=== PATIENT | male | born 1990 | race Caucasian/White ===

== ENCOUNTER 2020-05-15 07:26 | Emergency (ER) | payer MEDICAID, SELFPAY ==
[2020-05-15 07:27] VITALS: BP 163/97; PULSE 91; RESP 16; TEMP 36.3; O2SAT 98; BMI 45.8
--- NOTE | 2020-05-15 07:49 | ED.VIS.GEN ---
History of Present Illness Chief Complaint: Anxiety Informant: Patient Onset: Weeks - 1 Context: Gradual Onset Timing: Intermittent Quality: fearfulness that leads to panic, anxiety Current Severity: Mild Maximum Severity: Severe Worsened by: nighttime before bed Relieved by: nothing Associated Symptoms: after panicky, feels heart racing and shaky all over; no prodromal sx. Narrative: Patient states in the goal of better health and eating less and trying to lose weight, he stopped smoking marijuana about 1 month ago. He does no other drugs and takes no prescriptions. He has not been feeling depressed or suicidal. He has no hallucinations, but for reasons that he is unaware, although he has had issues with depression and anxiety in the past, he gets very anxious and at times panicky at night recently over the past week, with fear of dying, although he is not having suicidal thoughts or wanting to . He has an appointment at [facility] for a mental health evaluation in 5 days, but is concerned about his symptoms because it is causing him to be unable to sleep well, and then having more of the anxiety the following day now. No recent illnesses, patient presents during the national coronavirus emergency declaration/pandemic. He denies any known contact with anyone infected with COVID-19. He denies traveling out of the immediate area recently. - Past Medical History (1) Anxiety Status: Chronic Past Medical History - Allergies and Home Meds Allergies/Adverse Reactions: Allergies peanut Allergy (Verified 05/15/20 07:27) Anaphylaxis egg Adverse Reaction (Verified 05/15/20 07:27) Nausea/Vom/Diarrhea Primary Care Physician: Bossman Stein MD [Primary Care Provider] - Lives: With Family Smoking Status: Never smoker Alcohol: None Drugs: Marijuana Review of Systems General: Reports: Weight loss - 14 pounds, intentional. Denies: Chills, Fever, Sweats Eyes: Denies: Visual changes - bilaterally, Diplopia ENT: Denies: Rhinorrhea, Sore throat Cardiovascular: Denies: Chest pain, Palpitations Respiratory: Denies: Dyspnea, Cough, Dyspnea on exertion Gastrointestinal: Denies: Abdominal pain, Nausea, Vomiting, Diarrhea, Melena, Hematochezia Genitourinary: Denies: Dysuria, Hematuria, Frequency Musculoskeletal: Denies: Back pain, Extremity Pain Skin: Denies: Rash, Wounds Neurological: Denies: Headache, Weakness, Parasthesia, Numbness Psych: Reports: Anxiety. Denies: Depression, Suicidal thoughts, Suicidal ideations Endocrine: Denies: Polyuria, Polydipsia, Heat intolerance, Cold intolerance Allergy: Denies: Swelling of the mouth, Swelling of the tongue Physical Exam Vital Signs/Narrative: Vital Signs Temp Pulse Resp BP Pulse Ox 05/15/20 07:27 97.4 F L 91 16 163/97 H 98 Inital Vital Signs reviewed: Yes General: Well nourished, Well developed, Obese, No Acute Distress Head: Normocephalic, Atraumatic Eyes: Perrl, EOMI ENT: Moist mucous membranes, No rhinorrhea Neck: Supple, Nontender, No lymphadenopathy, - - No thyromegaly Cardiovascular: Regular rate, Regular rhythm, No murmurs Respiratory: No distress, CTA bilaterally, Chest nontender Abdomen: Soft, Nontender, Nondistended, Normal bowel sounds Back: Nontender, Normal Inspection. Negative for: CVA tenderness Extremities: Nontender, No edema. Negative for: Calf Tenderness Skin: Normal color, No rash, No Trauma Neurological: Alert, Oriented x3, Cranial nerves II-XII grossly intact, Normal Strength, Normal Sensation, Normal Gait Psychological: Normal affect, Normal Mood Diagnostic/Tx/Re-eval - Medical Decision Making Patient's medical screening exam is benign. I think it would be reasonable to write him a prescription for some Ambien to try, as trying to start him on an SSRI may result in it being changed in 5 days and relatively wasteful when he sees mental health. I discussed this with him and he is amenable to trying that. ED Disposition - Plan for ED Patient: Disposition: Home or Assisted Living Diagnosis: Anxiety, Insomnia Instructions: ED Panic Attack, ED Insomnia Prescriptions: Zolpidem Tartrate [Ambien] 5 mg PO QHS PRN #6 tab PRN Reason: Insomnia Prescription Printed Referrals: Bossman Stein MD [Primary Care Provider] - [facility] [STAFF PHYSICIAN] - Keep Natalie appointment
== END 2020-05-15 08:13 | disposition home or self-care (01) ==
LOC: ED 08:04
PROVIDERS: Emergency Provider Emergency Medicine
DX: G47.00 Insomnia, unspecified (principal); F41.9 Anxiety disorder, unspecified; E66.9 Obesity, unspecified
CPT/HCPCS: 99282

== ENCOUNTER → 2020-05-22 | Outpatient (CLI) | payer MEDICAID, SELFPAY ==
[2020-05-15 07:27] VITALS: BMI 45.8
[2020-05-22 10:53] LABS: Absolute Lymphocyte Count 2.72 X10^3/uL (0.83-4.51); Absolute Neutrophil Count 4.5 X10^3/uL (2.0-7.7); Basophil# 0.07 X10^3/uL; Basophil% 0.8 % (0-1); Hematocrit 44.7 % (40-54); Hemoglobin 15.2 g/dL (13.0-16.5); Lymphocyte # 2.72 X10^3/ul (4.0); Lymphocyte % 32.7 % (19-41); Mean Corpuscular Hgb 29.7 pg (27.0-32.0); Mean Corpuscular Volume 87.3 fL (80-94); Monocyte# 0.51 X10^3/uL; Monocyte% 6.1 % (0-10); NRBC Flagged by Analyzer 0 % (0-5); Neutrophil # 4.49 X10^3/uL (2.7-7.7); Platelet Count 305 K/mm3 (150-450); RBC Distribution Width CV 13.1 % (11.6-14.6); RBC Distribution Width SD 40.6 fl (35.1-43.9); Red Blood Count 5.12 M/mm3 (4.6-6.2); White Blood Count 8.3 K/mm3 (4.4-11.0)
[2020-05-22 11:35] LABS: Vitamin D,25 Hydroxy 21.4 ng/mL
[2020-05-22 11:45] LABS: ALB/GLOB Ratio 0.9 RATIO (0.9-2.4); AST(SGOT) 27 U/L (15-37); Alanine Aminotransfer ALT/SGPT 54 U/L (16-61); Albumin, Serum 3.6 g/dL (3.2-5.0); Alkaline Phosphatase 84 U/L (45-117); Anion Gap 5 (5-15); BUN 14 mg/dL (7-18); BUN/Creat Ratio 15.2 RATIO (10-20); Chloride 106 mmol/L (98-107); Cholesterol 149 mg/dL (200); Creatinine, Serum 0.92 mg/dL (0.70-1.30); EST Glomerular Filtration Rate 103 mL/min (>60); Est Glom Filt Rate - Afr Amer 125 mL/min (>60); Globulin 4.1 g/dL (2.2-4.2); Glucose 88 mg/dL (74-106); High Density Lipoprotein 35 mg/dL; Potassium 3.9 mmol/L (3.5-5.1); Protein, Total 7.7 g/dL (6.4-8.2); Sodium Level 138 mmol/L (136-145); T4 Free Direct 1.15 ng/dL (0.76-1.46); Thyroid Stim Hormone (TSH) 1.42 uIU/mL (0.358-3.74); Triglycerides 88 mg/dL; Very Low Density Lipoprotein 18 mg/dL (5-40)
[2020-05-23 13:21] LABS: H. Pylori Antibody (IgG) 0.33 (0.00-0.79)
== END | disposition home or self-care (01) ==
LOC: LAB 10:33
PROVIDERS: Nurse Practitioner Family
DX: G47.00 Insomnia, unspecified (principal); K21.9 Gastro-esophageal reflux disease without esophagitis; R53.83 Other fatigue; F41.9 Anxiety disorder, unspecified
CPT/HCPCS: 36415; 80053; 80061; 82306; 83036; 84439; 84443; 85025; 86677

== ENCOUNTER 2020-11-14 17:37 | Emergency (ER) | payer MEDICAID, SELFPAY ==
[2020-11-14] VITALS (7 sets, daily range): BP systolic 124–133; BP diastolic 87–117; PULSE 100–135; RESP 15–26; TEMP 36.4; O2SAT 98–99; BMI 47.4
--- NOTE | 2020-11-14 17:42 | NURSING ---
NO OLD EKGS
--- NOTE | 2020-11-14 17:47 | EKG12_ITS ---
Test Reason : CHEST PAIN Blood Pressure : / mmHG Vent. Rate : 135 BPM Atrial Rate : 135 BPM P-R Int : 142 ms QRS Dur : 094 ms QT Int : 282 ms P-R-T Axes : 017 044 017 degrees QTc Int : 423 ms Sinus tachycardia Nonspecific ST abnormality Abnormal ECG Confirmed by DANIKA SHEEHAN, LUC ([id number]), online editor CARSON SANTILLAN ([id number]) on 11/17/2020 11:46:27 A M Referred By: PJ Confirmed By:EVGENY GARNICA MD
--- NOTE | 2020-11-14 17:49 | RAD_ITS ---
STUDY: X-RAY CHEST REASON FOR EXAM: Male, 30 years old. PT C/O CHEST PRESSURE X30 MINUTES. TECHNIQUE: AP portable COMPARISON: 07/23/2012 FINDINGS: The lungs are clear and expanded. There is no demonstrated pleural abnormality. Normal size heart. Normal mediastinum and amy. Normal visualized pulmonary arteries. Normal visualized aortic arch and descending thoracic aorta. Normal visualized thoracic spine. Normal visualized ribs, clavicles, and shoulders. There is no demonstrated abnormality of the visualized soft tissue structures of the upper abdomen No significant change since prior exam. RAD/Chest 1 View (Portable) IMPRESSION: Normal x-ray examination of the chest. Electronically Signed: Bossman Tomas MD at 18:17 EST , Service support ,
[2020-11-14] MEDS: 0.9% Normal Saline 1,000 ML 1000 ML IV (17:57)
[2020-11-14] MEDS: LORazepam 2 MG/ML Syringe 1 MG IV (17:57)
[2020-11-14 18:50] LABS: Basophil# 0.13 X10^3/uL; Eosinophils% 9.2 % (0-5); Hematocrit 44.8 % (40-54); Hemoglobin 15.5 g/dL (13.0-16.5); Lymphocyte % 28.4 % (19-41); Mean Corp Hgb Conc 34.6 g/dL (32-36); Mean Corpuscular Hgb 29.6 pg (27.0-32.0); Mean Corpuscular Volume 85.7 fL (80-94); Mean Platelet Vol. 10.5 fl (6.2-12.0); Monocyte# 0.89 X10^3/uL; Monocyte% 6.8 % (0-10); NRBC Flagged by Analyzer 0 % (0-5); Neutrophil # 7.02 X10^3/uL (2.7-7.7); Neutrophil % 54.1 % (47-70); POSITIVE MORPHOLOGY YES; Platelet Count 412 K/mm3 (150-450); RBC Distribution Width CV 12.5 % (11.6-14.6); RBC Distribution Width SD 38.8 fl (35.1-43.9); Red Blood Count 5.23 M/mm3 (4.6-6.2)
[2020-11-14 18:53] LABS: Differential Indicated SCAN CRITERIA MET
[2020-11-14 19:00] LABS: D-Dimer Quantitative (DVT/PE) 1.39 FEU/ug/m (0.27-0.49)
[2020-11-14 19:09] LABS: Anion Gap 7 (5-15); BUN 13 mg/dL (7-18); Calcium,Total 8.9 mg/dL (8.5-10.1); Chloride 103 mmol/L (98-107); Creatinine, Serum 1.08 mg/dL (0.70-1.30); EST Glomerular Filtration Rate 86 mL/min (>60); Est Glom Filt Rate - Afr Amer 103 mL/min (>60); Estimated Creatinine Clearance 100.92 ml/min; Glucose 136 mg/dL (74-106); Potassium 3.2 mmol/L (3.5-5.1); Sodium Level 137 mmol/L (136-145)
--- NOTE | 2020-11-14 19:13 | CT_ITS ---
STUDY: CTA CHEST REASON FOR EXAM: Male, 30 years old. 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 Post-processing of the angiographic images was performed, with multiplanar reformation and 3D reconstruction. Individualized dose optimization techniques were used for this CT. COMPARISON: None. FINDINGS: There is less than optimal opacification of the pulmonary arteries due to delayed bolus technique.. There is no definitive evidence for intraluminal clot within the pulmonary arteries. Normal thoracic aorta and visualized great vessels. There is no demonstrated aortic dissection. Normal heart and pericardium. Normal mediastinum. Normal hilar regions. Normal visualized trachea and bronchi. The lungs are well expanded. Normal pulmonary parenchyma. Normal pleura. Normal chest wall structures. Normal osseous structures. Gallbladder not visualized which may be consistent with prior cholecystectomy.. CT/CTA Chest W/WO Contrast IMPRESSION: Normal CTA chest examination, without definitive evidence for pulmonary embolus given suboptimal opacification of the pulmonary arteries.. If strong clinical suspicion for pulmonary embolus radionuclide pulmonary ventilation/perfusion scan and/or DOPPLER scan of the deep venous system of lower extremities would be helpful for further evaluation Electronically Signed: Bossman Tomas MD at 19:48 EST , Service support ,
[2020-11-14 19:15] LABS: Differential Comment SCANNED
--- NOTE | 2020-11-14 20:04 | US_ITS ---
STUDY: VENOUS DOPPLER ULTRASOUND - BILATERAL LOWER EXTREMITIES REASON FOR EXAM: Male, 30 years old. CHEST PAIN AND ELEVATED D DIMER TECHNIQUE: Ultrasound evaluation of the deep vein system to include carney-scale imaging and compression was performed. Carney-scale imaging and Doppler sonographic evaluation, including duplex spectral analysis and qualitative color flow sonography, was performed. COMPARISON: None. FINDINGS: RIGHT LEG Common Femoral Vein: Normal compression, spontaneity and augmentation. Normal color Doppler. Common Femoral Vein/Greater Saphenous Junction: Normal compression, spontaneity and augmentation. Normal color Doppler. Deep Femoral Vein: Normal compression, spontaneity and augmentation. Normal color Doppler. Femoral Proximal: Normal compression, spontaneity and augmentation. Normal color Doppler. Femoral Middle: Normal compression, spontaneity and augmentation. Normal color Doppler. Femoral Distal: Normal compression, spontaneity and augmentation. Normal color Doppler. Popliteal Vein: Normal compression, spontaneity and augmentation. Normal color Doppler. Posterior Tibial Vein: Normal compression, spontaneity and augmentation. Normal color Doppler. Peroneal Vein: Normal compression, spontaneity and augmentation. Normal color Doppler. LEFT LEG Common Femoral Vein: Normal compression, spontaneity and augmentation. Normal color Doppler. Common Femoral Vein/Greater Saphenous Junction: Normal compression, spontaneity and augmentation. Normal color Doppler. Deep Femoral Vein: Normal compression, spontaneity and augmentation. Normal color Doppler. Femoral Proximal: Normal compression, spontaneity and augmentation. Normal color Doppler. Femoral Middle: Normal compression, spontaneity and augmentation. Normal color Doppler. Femoral Distal: Normal compression, spontaneity and augmentation. Normal color Doppler. Popliteal Vein: Normal compression, spontaneity and augmentation. Normal color Doppler. Posterior Tibial Vein: Normal compression, spontaneity and augmentation. Normal color Doppler. Peroneal Vein: Normal compression, spontaneity and augmentation. Normal color Doppler. US/Venous Duplex Imag/Philip Extrem IMPRESSION: Normal venous Doppler ultrasound of the bilateral lower extremities. Electronically Signed: Bossman Tomas MD at 20:57 EST , Service support ,
--- NOTE | 2020-11-14 20:13 | EKG12_ITS ---
Test Reason : REPEAT CP Blood Pressure : / mmHG Vent. Rate : 121 BPM Atrial Rate : 121 BPM P-R Int : 142 ms QRS Dur : 090 ms QT Int : 318 ms P-R-T Axes : 022 022 013 degrees QTc Int : 451 ms Sinus tachycardia Otherwise normal ECG Confirmed by DANIKA SHEEHAN, LUC ([id number]), material expeditor CARSON SANTILLAN ([id number]) on 11/17/2020 11:46:44 A M Referred By: MAE Confirmed By:EVGENY GARNICA MD
[2020-11-14] MEDS: 0.9% Normal Saline 1,000 ML 999 ML IV (20:45)
--- NOTE | 2020-11-14 21:02 | ED.DCSUM_ITS ---
- ER Visit Summary Date of Service: 11/14/20 Chief Complaint: Chest pain History of Present Illness: The patient is a 30 M who goes to the [facility]. Reports that he has chest pain again approximate 45 minutes ago while he was at rest. It is a diffuse tightness. Is 9 to 10 hours and 7-10 currently. Is worsened by sitting down and relieved by walking around. Is been nausea and vomited once with that. He also has been diaphoretic. He denies any shortness of breath. Patient has a family history of DVT. No personal history of DVT. No recent travel. No ankle swelling or calf pain. He reports that he had an energy drink at 11:00 this morning and that he has this twice a week. He denies any drug use. He denies any decongestants or other things that may have made him tachycardic. Physical Examination: Vitals: 97.6, 124/100, 135, 18, 98% on room air which is not hypoxic. General: Well-nourished and well-developed. Head: Normocephalic atraumatic. Neck: Supple, no lymphadenopathy. No JVD. Nontender. Cardiovascular: Tachycardic regular rhythm. No murmurs. Respiratory: No respiratory distress. Clear to auscultation bilaterally. Abdominal: Soft, nontender, nondistended, normal bowel sounds. No guarding, rebound, or peritoneal signs. Back: Nontender. Extremities: Nontender, no edema. Skin: Normal color, no rash. Neurologic: Alert and oriented ?3. Cranial nerves II through XII are intact. Normal strength and sensation. Psych: Normal affect. Test Results: EKG is sinus tach at [address] changes. There is no old EKG for comparison. Repeat EKG is sinus tach at 121. Troponin is negative. Repeat troponin is negative. D-dimer is 1.39. Covid is negative. Chem-7 shows a potassium of 3.2 and glucose 136. CBC shows a white count of 13.0 and eosinophils of 9. TSH is elevated at 3.9. Clinical Impression(s) from Imaging Studies Chest X-Ray 11/14/20 17:49 IMPRESSION: Normal x-ray examination of the chest. Electronically Signed: Bossman Tomas MD at 18:17 EST , Service support , Chest CTA 11/14/20 19:13 IMPRESSION: Normal CTA chest examination, without definitive evidence for pulmonary embolus given suboptimal opacification of the pulmonary arteries.. If strong clinical suspicion for pulmonary embolus radionuclide pulmonary ventilation/perfusion scan and/or DOPPLER scan of the deep venous system of lower extremities would be helpful for further evaluation Electronically Signed: Bossman Tomas MD at 19:48 EST , Service support , Venous Duplex 11/14/20 20:04 IMPRESSION: Normal venous Doppler ultrasound of the bilateral lower extremities. Electronically Signed: Bossman Tomas MD at 20:57 EST , Service support , Emergency Department Course and Treatment: Patient reported that he did feel anxious initially and was given a dose of Ativan IV. He was given 2 L normal saline. His heart rate is decreased into the 1 teens at rest. Had a prolonged discussion at this time I do not have an explanation for his sinus tachycardia. Treatment Plan: Patient appears well other than the sinus tachycardia and has had an extensive evaluation undertaken. This time I feel that he is a suitable candidate for further outpatient evaluation. He will be discharged instructions to push fluids. [facility] 5 days for another exam. Return to the emergency department for any worsening symptoms. Disposition: To home in improved and stable condition. Impression: 1. Atypical chest pain. 2. Sinus tachycardia. This note was generated with [employer] dictation software. It may contain incorrect words, spelling, and punctuation that were not noted in review of the chart prior to signing ED Disposition - Plan for ED Patient: Disposition: Home or Assisted Living Instructions: ED Chest Pain, Uncertain Cause [facility] - 3-5 Days
== END 2020-11-14 22:27 | disposition home or self-care (01) ==
LOC: ED 18:13
PROVIDERS: Emergency Provider Emergency Medicine
DX: R07.89 Other chest pain (principal); R00.0 Tachycardia, unspecified; J45.909 Unspecified asthma, uncomplicated; K21.9 Gastro-esophageal reflux disease without esophagitis; F32.9 Major depressive disorder, single episode, unspecified; Z79.51 Long term (current) use of inhaled steroids; Z79.899 Other long term (current) drug therapy
CPT/HCPCS: 71045; 71275; 80048; 84443; 84484; 85025; 85379; 87426; 93005; 93970; 96361; 96374; 99285; J7030; Q9967; A4216

== ENCOUNTER → 2020-12-04 09:25 | Outpatient (CLI) | payer MEDICAID, SELFPAY ==
[2020-11-14 17:38] VITALS: BMI 47.4
[2020-12-04 10:40] LABS: Absolute Lymphocyte Count 3.52 X10^3/uL (0.83-4.51); Absolute Neutrophil Count 6.7 X10^3/uL (2.0-7.7); Basophil# 0.08 X10^3/uL; Basophil% 0.7 % (0-1); Hematocrit 47.1 % (40-54); Hemoglobin 15.4 g/dL (13.0-16.5); Lymphocyte # 3.52 X10^3/ul (4.0); Lymphocyte % 32.3 % (19-41); Mean Corp Hgb Conc 32.7 g/dL (32-36); Mean Corpuscular Hgb 28.5 pg (27.0-32.0); Mean Corpuscular Volume 87.2 fL (80-94); Mean Platelet Vol. 10.4 fl (6.2-12.0); Monocyte# 0.58 X10^3/uL; Monocyte% 5.3 % (0-10); NRBC Flagged by Analyzer 0 % (0-5); Neutrophil # 6.69 X10^3/uL (2.7-7.7); Neutrophil % 61.5 % (47-70); Platelet Count 315 K/mm3 (150-450); RBC Distribution Width CV 12.8 % (11.6-14.6); White Blood Count 10.9 K/mm3 (4.4-11.0)
[2020-12-04 11:14] LABS: Anion Gap 9 (5-15); BUN 10 mg/dL (7-18); Calcium,Total 8.9 mg/dL (8.5-10.1); Chloride 105 mmol/L (98-107); Cholesterol 166 mg/dL (200); Creatinine, Serum 0.83 mg/dL (0.70-1.30); EST Glomerular Filtration Rate 115 mL/min (>60); Est Glom Filt Rate - Afr Amer 139 mL/min (>60); Glucose 87 mg/dL (74-106); High Density Lipoprotein 41 mg/dL; Potassium 3.6 mmol/L (3.5-5.1); Sodium Level 138 mmol/L (136-145); T4 Free Direct 1.31 ng/dL (0.76-1.46); Thyroid Stim Hormone (TSH) 3.52 uIU/mL (0.358-3.74); Triglycerides 71 mg/dL; Very Low Density Lipoprotein 14 mg/dL (5-40)
[2020-12-05 16:37] LABS: Thyroid Peroxidase AB < 9 IU/mL (0-34)
== END ==
DX: R00.2 Palpitations (principal)
CPT/HCPCS: 36415; 80048; 80061; 83036; 84439; 84443; 85025; 86376

== ENCOUNTER → 2020-12-09 10:49 | Outpatient (CLI) | payer MEDICAID, SELFPAY ==
[2020-11-14 17:38] VITALS: BMI 47.4
== END ==
PROVIDERS: Referring Provider Nurse Practitioner Adult Health; Visit Provider Nurse Practitioner Adult Health
DX: R00.2 Palpitations (principal)
CPT/HCPCS: 93225; 93226

== ENCOUNTER 2021-01-04 21:48 | Emergency (ER) | payer MEDICAID, SELFPAY ==
[2020-11-14 17:38] VITALS: BMI 47.4
[2021-01-04 21:49] VITALS: BP 128/98; PULSE 117; RESP 18; TEMP 36.1; O2SAT 99; BMI 44.9
--- NOTE | 2021-01-04 22:18 | ED.VIS.BACK ---
History of Present Illness Chief Complaint: Back Narrative: Patient presenting for evaluation secondary to back pain. Patient states that he developed back pain around 3 to 4 hours prior to arrival. He reports that he was sitting, had an onset of lower back pain over his SI area. States that sharp type pain. There is no exacerbating relieving factors. Patient denies any radiating numbness or weakness, fevers chills night sweats unintended weight loss. Denies any bowel or bladder incontinence. No recent injections or surgeries. 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 Patient states that he intermittently will have a variety of symptoms including feelings of coldness of his hands and his feet, anxiety, swelling of the hands and the feet, and multiple other symptoms that she spends a period of time describing. He states that he currently is being trialed on metoprolol, BuSpar, and amitriptyline. He is currently pending follow-up with the counseling center which is in another 2 weeks. He denies being suicidal or homicidal or hallucinating. Patient states that often times he is not sure if the somatic complaints that he has are actually real, side effects from his medications, or associated with his hypochondria. Past Medical History - Allergies and Home Meds Allergies/Adverse Reactions: Allergies peanut Allergy (Verified 01/04/21 21:52) Anaphylaxis egg Adverse Reaction (Verified 01/04/21 21:52) Nausea/Vom/Diarrhea [facility] - Prior records reviewed: Yes Past Medical History: - - Anxiety Smoking Status: Current every day smoker Alcohol: None Drugs: None Review of Systems All systems negative except as indicated General: Denies: Chills, Fever, Sweats Eyes: Denies: Visual changes - bilaterally, Diplopia ENT: Denies: Rhinorrhea, Sore throat Cardiovascular: Denies: Chest pain, Palpitations Respiratory: Denies: Dyspnea, Cough, Dyspnea on exertion Gastrointestinal: Denies: Abdominal pain, Nausea, Vomiting, Diarrhea, Melena, Hematochezia Genitourinary: Denies: Dysuria, Hematuria, Frequency Musculoskeletal: Reports: Back pain, Swelling Skin: Denies: Rash, Wounds Neurological: Reports: Parasthesia Psych: Reports: Anxiety Physical Exam Vital Signs/Narrative: Vital Signs Temp Pulse Resp BP Pulse Ox 01/04/21 21:49 96.9 F L 117 H 18 128/98 H 99 Inital Vital Signs reviewed: Yes General: Well nourished, Well developed, Obese Head: Normocephalic, Atraumatic Eyes: Perrl, EOMI ENT: Moist mucous membranes, No rhinorrhea Neck: Supple, Nontender Cardiovascular: Regular rate, Regular rhythm, No murmurs, - - 2+ radial, 2+ PT pulses bilaterally symmetric. Normal capillary refill upper and lower extremities. Respiratory: No distress, CTA bilaterally, Chest nontender Abdomen: Soft, Nontender, Nondistended, Normal bowel sounds Back: Normal Inspection, Nontender, - - Patient complains of pain over the right SI joint but it is nonreproducible Extremeties: Nontender, No edema, - - Normal straight leg raise bilaterally, 5 out of 5 strength at the hip knee ankle and foot with normal sensation over all dermatomes normal reflexes negative clonus and Babinski Skin: Normal color, No rash Neuro: Alert, Oriented, Normal Strength, Normal Sensation, Normal DTR, Normal Gait Psychological: - - Anxious Diagnostic/Tx/Re-eval - Medical Decision Making Patient presented with anxiety and back pain. His back pain exam is reassuring, do not feel that work-up is indicated. His pain is directly over his SI joint I will treat the patient with NSAIDs. Patient is far as his anxiety is on a cocktail 3 different medications, he requests something for breakthrough anxiety I will provide the patient with a prescription for Vistaril to be taken as needed. Patient was encouraged to follow-up with counseling center. ED Disposition - Plan for ED Patient: Disposition: Home or Assisted Living Diagnosis: Back pain, Anxiety Instructions: ED Back Pain (Acute or Chronic), ED Back Care Tips Prescriptions: Naproxen [Naprosyn] 500 mg PO BID PRN #20 tablet Transmission Status: Pending to [id number] hydrOXYzine pamoate capsule [Vistaril] 50 mg PO TID PRN PRN #30 capsule PRN Reason: Anxiety Transmission Status: Pending to [id number] [[facility]] -
[2021-01-04] MEDS: hydrOXYzine PAM 25 MG Capsule 50 MG PO (22:31)
[2021-01-04] MEDS: Naproxen 500 MG Tablet PO (22:32)
== END 2021-01-04 22:33 | disposition home or self-care (01) ==
PROVIDERS: Emergency Provider Emergency Medicine
DX: M54.5 Low back pain (principal); F41.9 Anxiety disorder, unspecified; F17.200 Nicotine dependence, unspecified, uncomplicated; Z79.899 Other long term (current) drug therapy
CPT/HCPCS: 99283

== ENCOUNTER 2021-01-12 09:00 | Outpatient (RCR) | payer MEDICAID, SELFPAY ==
--- NOTE | 2021-01-12 09:00 | BH.COMM_ITS ---
Communication Note - Communication with Client Communication Note: Met with pt to complete initial paperwork. No significant changes since pre-admission screening. Completed [place] Suicide Screening. Low risk.
--- NOTE | 2021-01-12 09:03 | BH.SGPN.GN ---
Behaviors/Verbalizations/Mental Status: []Client alert and oriented, casually dressed and groomed. Eye contact fair to good. Motor activity appropriate. Speech within normal limits. Affect constricted, mood anxious. Thoughts linear, logical, no signs of hallucinations or delusions. Client Response/Progress/Benefit: []Pt responded well to session AEB pt listening attentively to peers and openly sharing thoughts and feelings. Pt shared he is seeking therapy because he has panic attacks at night that impact his sleep quality. Pt reported he also has severe health anxiety, constantly thinking something is wrong with him if he feels any pain. Pt reported he wants to learn ways to manage anxious thoughts when starts to notice pain in his body so he can stop himself from going into full panic. Seemed to benefit from peer support. Pt's first day in IOP. Pt to continue IOP to decrease anxiety, reduce safety behaviors and prevent decompensation. Narrative Note: []
--- NOTE | 2021-01-12 10:10 | BH.SGPN.GN ---
Behaviors/Verbalizations/Mental Status: [] Eye contact is good. Motor activity is appropriate. Appearance is disheveled. Speech is Appropriate. Mood is anxious. Affect is congruent. Thoughts are linear and logical. Client Response/Progress/Benefit: [] Pt was an active participant in group discussions and activity. Attentive during psychoeducation and provided insight into obstacles in the way of mental wellness. Pt shared her picture depicting his current mental health reality with the group. He described his current reality as floating in space with chaos around him. Feels alone and stuck. Pt's desired reality is being back down to earth and just feeling and sleeping at baseline. Benefited from taking look at current mental health state and obstacles for progress. Will continue in IOP to increase healthy coping, decreased panic, and improve daily functioning. Narrative Note: []
--- NOTE | 2021-01-12 11:10 | BH.SGPN.GN ---
Behaviors/Verbalizations/Mental Status: []Client alert and oriented, casually dressed and groomed. Eye contact good. Motor activity appropriate. Speech within normal limits. Affect congruent, mood anxious and dysthymic. Thoughts linear, logical, no signs of hallucinations or delusions. Client Response/Progress/Benefit: []Client was an active participant in group discussion and activity. Engaged during activity and listened to ideas on how to cope with internal barriers that keep clients stuck from moving towards goals. Barriers identified by client included: racing thoughts, worry about the future, and fear or . Strategies identified for overcoming these barriers included: mindfulness, thought challenging, small goals, and grounding. Client wants to work on overcoming the barrier of worrying about the future by setting small goals for the present moment. Benefited from group by identifying obstacles and solutions to desired reality. First day of IOP tx. Will continue IOP tx to prevent decompensation, improve healthy coping skills, and improve daily functioning. Narrative Note: []
--- NOTE | 2021-01-14 10:30 | BH.NA_ITS ---
Physical Data - Vital Signs Pulse Rate: 82 Blood Pressure: 135/86 - Height/Weight Height: 1.75 m Weight:: 141.521 kg Weight in Pounds: 312.0 lbs Current Medication Compliance - Medication Compliance Do you take your medication as prescribed?: Yes Nutritional History - Appetite Nutritional Instructions:: If client shows signs of a swallowing problem, weight change of 10 pounds or more in the last month, or is on a diabetic diet, the physician will review and request a dietitian consult, as appropriate. All unintentional weight loss will be referred to the physician for decision on need for dietitian consult. Describe your appetite:: Poor Additional nutritional information:: Client states he has lost 12lbs in the last month. Client states his appetite is decreased, and he only eats when he takes his Metoprolol because he knows he won't feel well if he takes it without food. Functional Assessment - Sleep Pattern Describe any problems with sleeping: Client states he sleeps 3-5 hours per night. Client states he has several panic attacks at night due to his health anxiety and worrying every little feeling I get means I'm going to , even though I know that isn't logical. - Activities Motor Activity:: Functional Sensory/Communication Assess - Vision Problems Do you have any vision problems?: Glasses - Communication Problems Do you have difficulty understanding what people are saying?: No Medical Problems/History - Cardiac Conditions Cardiovascular: Other (See comments) Comments:: recent heart palpitations. Had a 24 hour holter monitor in December 2020 with normal results. - Respiratory Conditions Respiratory: Asthma - Gastrointestinal Conditions Gastrointestinal: Other (See comments) Comments:: IBS - Pain Assessment Do you have acute or chronic pain?: No - recently had back pain that has resolved Surgical History - Surgical History Have you had any surgeries? If so, list type and date:: Yes - miguel Substance Abuse - Substance Abuse Please describe substance abuse in the last 30 days:: Client denies alcohol use. Client states she vapes tobacco daily. Client states he stopped using marijuana 7 months ago. Client states 3 years ago he had an addiction to adderall, that he went to rehab for. Client states in the last 6 months, he has significantly decreased his caffiene intake from 2 energy drinks per day to one soda per day. Mental Status Summary - Mental Status Significant Findings/Observations on Appearance and Mood:: Client is alert and oriented x4. Client is casually dressed with a mask on due to pandemic. Client makes good eye contact. Client's voice has normal volume, sometimes somewhat rapid rate. Client appears mildly anxious during assessment, talking fast at times. Client makes logical associations. Client denies delusions/hallucina tions. Client denies SI. Suicide Assessment - Suicidal Ideation Are you currently or have you been suicidal in the past?: No Physician Notification: If Active suicidal thoughts/Will not contract for safety is checked, contact physician and document in the Physician Notification section below. Past Psychiatric History - MH Treatment Hx Past Psychiatric Medications:: Wellbutrin, Ativan, a mood stabilizer Age of first mental health symptoms: Client states he used to use marijuana heavily for several years up until about 7 months ago. Client states his symptoms of anxiety and panic disorder started within a couple of months of stopping marijuana, and he is not sure if he was using marijuana to self- medicate. Describe (age, circumstance, etc) any past hospitalizations: Hospitalized in 2010 for a psychotic break after of his mother. Current providers for mental health treatment (counselor, psychiatrist, foster care case manager, etc.): Client had been calling the crisis line for [facility] prior to referal to [facility]. Client will be doing an intake at [facility]. Fall Risk Assessment - Age Age: Less than 60 - Mental Status Mental Status: Willing & able to ask for assistance when needed - Physical Status Physical Status: No problems - Impairments Impairments: None - Elimination Elimination: Continent AND independent - Gait or Balance Gait or Balance: Walks independently - Hx of Falls History of falls in the past 6 months: No known history - Medications/Substances Psychotropics:: Antidepressants, Antihistamines (e.g. Benadryl) Others:: Antihypertensives Medications/substances used within the past 24 hours or ordered to administer: 3 or more of the medications/substances listed above - Total Score Total Points:: 2 RN Summary of Impressions - Impressions Recommendations: Include psychiatric and medical issues, treatment planning recommendations, and discharge planning needs. Impressions: Psychiatric Issues: panic disorder; illness anxiety disorder; major depressive disorder, recurrent, moderate; Adderall use disorder (sober for 3 years); marijuana use disorder (in remission for 6 months) - Level of Care How do the client's current symptoms and functional deficits support need for t his level of care?: Client was referred to [facility] by [facility] crisis after several phone calls about panic and insomnia. Client states that his panic attacks have worsened in the last couple of months. Client states he stopped using marijuana about 7 months ago and was put on Amitriptyline and panic feelings lessened until a couple of months ago when his panic attacks got worse. Client states he barely sleeps at night due to panic about health problems, I think every little thing means I'm going to , even though I know that isn't logical. Client is afraid to drive because he has had panic attacks driving, so his dad is currently driving him places. Client states his panic attacks are worse in small spaces, like the car or the shower. Client states he has daily pa [place] attacks, mainly at night, with symptoms of racing thoughts, lightheadedness and feeling like he is going to pass out, palpitations, weak legs, and double vision. Client also endorses ruminations, intrusive thoughts, extensive health anxiety, and isolation. Client had a recent ER visit with chest pain and palpitations, and had a holter monitor placed after that had normal results. IOP will promote gains and prevent further decompensation while providing social support and skills training.
--- NOTE | 2021-01-14 11:20 | BH.SGPN.GN ---
Behaviors/Verbalizations/Mental Status: []Client alert and oriented, casual dress, hygiene fair. Eye contact fair. Motor activity restless. Speech within normal limits. Affect constricted, mood anxious. Thoughts linear, logical, no signs of hallucinations or delusions. Client Response/Progress/Benefit: []Client responded well to session, connecting with peers and receptive to supportive statements. Client engaged in the boundary self-assessment activity and attentive during psychoeducation on the different boundary styles. Client reported he is most often rigid by keeping others at a distance to minimize the impact if the relationship doesn't work on. Client reported due to rigid boundaries he doesn't get as much out of the relationship. Client participated in brainstorming strategies to improve boundary setting. Seemed to benefit from increased awareness of how current boundary style impacts mental health and learning different strategies to improve boundary style. Client to continue IOP tx to improve daily functioning, increase use of healthy coping and prevent decompensation.
[2021-01-14 11:52] VITALS: BP 135/86; PULSE 82
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
--- NOTE | 2021-01-14 12:32 | BH.DR.ITP ---
Initial Treatment Plan - Patient Information Visit Information: ADMISSION DATE: EXPECTED LOS: 4-6 weeks - Problems/Symptoms Problem #1:: Anxiety Symptom:: Panic attacks, racing thoughts, worry, rumination, biological disruption of appetite and sleep, avoidance Problem #2:: Depression Symptom:: Sadness, low motivation, hopelessness, worthlessness, anhedonia, low energy level, decreased concentration, guilt
--- NOTE | 2021-01-15 09:04 | BH.SGPN.GN ---
Behaviors/Verbalizations/Mental Status: []Eye contact is good. Alert and oriented. Motor activity is appropriate. Appearance is casual. grooming is appropriate. Speech is Appropriate. Mood is anxious and dysthymic. Affect is congruent. Thoughts are linear and logical. No evidence of psychosis or hallucinations. Denies any SI, plan, or intent as of this date. Client Response/Progress/Benefit: []Pt engaged in session AEB listening to others, providing supportive feedback, and willingness to share thoughts and feelings with group. Pt noted feeling ?on edge and anxious? on this date as he has been struggling with nighttime anxiety impacting his sleep. Receptive of and appeared to benefit from supportive feedback provided by group. Appear to have insight into skills he can use to begin working to address anxious thoughts. Noted this as his primary stressor. Pt did well to identify current wins which included: applying thought challenging and mindfulness skills to manage anxiety throughout the day, as well as trying to cope with anxious thoughts rather than ruminate on them at night. Identified healthy skills used as: thought challenging, positive self-talk, grounding, and mindfulness. Recommended ongoing IOP tx to improve anxiety management skills, continue to promote healthy change behaviors, and prevent decompensation. Narrative Note: []
--- NOTE | 2021-01-15 10:15 | BH.SGPN.GN ---
Behaviors/Verbalizations/Mental Status: []Client alert and oriented, causally dressed and groomed. Eye contact good. Motor activity appropriate. Speech within normal limits. Affect constricted, mood anxious. Thoughts linear, logical, no signs of hallucinations or delusions. Client Response/Progress/Benefit: []Client engaged participant AEB client taking notes and providing input to discussion. Group gave examples of unhealthy coping skills. Client worked with group identifying the following as reasons unhealthy skills are used: instant gratification, escape reality, survival, feels good, learned behavior and habitual. Client stated he reverts back to unhealthy coping because it's easy. Client participated in the group activity. Client seemed to benefit from increased awareness of the importance of increasing healthy coping skills and consequences of utilizing unhealthy coping skills. Will continue IOP tx to prevent decompensation, decrease anxiety, and improve healthy coping. Narrative Note: []
--- NOTE | 2021-01-15 11:15 | BH.SGPN.GN ---
Behaviors/Verbalizations/Mental Status: []Client alert and oriented, casually dressed and groomed. Eye contact good. Motor activity appropriate. Speech within normal limits, quiet. Affect congruent, mood anxious. Thoughts linear, logical, no signs of hallucinations or delusions Client Response/Progress/Benefit: []Client responded well to session, taking notes and contributing. Group discussed the different categories of coping skills which included distraction, emotional release, grounding, self-love, and thought challenging. Client participated in creating a coping skills ?menu? from the five categories of coping skills. Client's coping skill menu included: exercise, writing poetry, meditating, self-compassion and dialectical thinking, and using a thought log. Client shared he used to write poetry and found it helpful, but most of the other skills are new. Appeared to benefit from increasing repertoire of healthy coping skills. Will continue tx to prevent decompensation, reduce health-related anxiety, and improve daily functioning. Narrative Note: []
--- NOTE | 2021-01-16 09:05 | BH.SGPN.GN ---
Behaviors/Verbalizations/Mental Status: [] Eye contact is good. Motor activity is appropriate. Appearance is disheveled. Speech is Appropriate. Mood is anxious. Affect is congruent. Thoughts are linear and logical. No evidence of psychosis. Reviewed daily check in sheet and no reports of suicidal ideations or intent. Client Response/Progress/Benefit: [] Pt was an active participant in group discussions. Attentive. Provided appropriate feedback. Daily symptom tracker notes 5/5 for anxiety and 3/5 for depressed mood. Emotion for today is anxious. Pt shared his game plan with the group with his goals to obtain a healthy amount of sleep and challenge healthy anxiety. Mental health win includes stopping a panic attacks in its tracks. Utilizing opposite action. Progress noted per pt report. Benefited from group support, encouragement, and feedback. Will continue in IOP to decreased panic attacks, increase healthy coping, and to improve functioning. Narrative Note: []
--- NOTE | 2021-01-16 14:19 | BH.MDN_ITS ---
Multi-Disciplinary Note - Note 60-min Individual Time Started:: 10:30 Date: 01/16/21 Purpose of session/treatment goals addressed:: Pt had a panic attack during 2nd group and requested to speak with a therapist Eye Contact:: Poor Motor Activity:: Restless Appearance:: Disheveled Speech:: Rapid Mood:: Anxious Affect:: Congruent Thoughts:: Linear, Logical, No evidence of hallucinations/delusions noted Staff Interventions:: Psychoeducation in Health Anxiety. Identifed anxiety cycle. Modeled breathing techniques with patient. Client Response:: Pt presented with panic attack. Pt displayed SOB, restlessness, and was slightly tearful. Practicing deep breathing. Did not speak for several minutes. Therapist allowed him to utilize his skills to self-calm. As he calmed he stated that panic was triggered by feeling like my stomach dropped ... and then noticed a lump in my josey's apple. Pt reports that his mind began to race about possible medical issues including cancer. He was able to rattle off several possible chronic and serious medical issues which could be occuring. Insight that he is probably fine however fear of being ill or dying is extensive. Insight into his health anxiety. Intelligent. We discussed his healthy anxiety cycle. Seeks reassurance when anxiety from others. Has always had issues with being alone. I always need to have someone around. Will often wake his dad in the evening during panic to get a hug and get some reassurance. We began to discuss possible ways to break anxity cycles and manage being alone. Risks/Concerns:: Denies any SI. No concerns. Progress Toward Goals/Plan:: Limited progress. Pt's first week in IOP. He is engaged in group and has insight however admits that he is very anxious and self-conscious speaking infront of others. ABle to self-calm. Needed extended period of time to vent frustrations and thoughts. Able to identify wins this past week and some coping skills learned so is benefiting. Panic the results of health anxiety and possible psychosomatic symptoms. Motivated for treatment. Plan is to continue in [facility] to increase health coping, prevent decompensation, and improve functioning. Time Stopped:: 11:45
--- NOTE | 2021-01-19 09:00 | BH.SGPN.GN ---
Behaviors/Verbalizations/Mental Status: []Client alert and oriented, casually dressed. Eye contact fair. Motor activity appropriate. Speech within normal limits. Affect congruent, mood anxious and euthymic. Thoughts linear, logical, no signs of hallucinations or delusions. Reviewed client?s symptom tracker, no risk or thoughts of suicide ideation, plan, or intent as of 01/19/21. Client Response/Progress/Benefit: []Client responded well to session, engaged throughout and participated in group discussion. Client reported feeling ?anxious and good? this morning. Client shared his goal of challenging negative thoughts as well as improving negative self-talk. Progress noted as client reported lessening his compulsions of decreasing time spent researching medical conditions and checking his pulse. Client shared his experience of going to the hospital over the weekend and stated feeling ?less anxious talking about it now in the present.? Client shared a stressor of waking up in panic with flashbacks of the ER room, but noted his positive as sleeping a whole 8 hours. Client benefited from group as he connected with his peers and offered positive feedback to others. Will continue IOP to promote the use of healthy coping skills, challenge negative thoughts, and decrease negative self-talk. Narrative Note: []
--- NOTE | 2021-01-19 10:10 | BH.SGPN.GN ---
Behaviors/Verbalizations/Mental Status: []Client alert and oriented, disheveled appearance. Eye contact good. Motor activity appropriate. Speech within normal limits. Affect constricted, mood anxious. Thoughts linear, logical, no signs of hallucinations or delusions. Client Response/Progress/Benefit: []Engaged participant AEB pt providing input throughout session and listening attentively to others. Engaged during psychoeducation portion reviewing fixed mindset. Pt worked with group to identify how a fixed mindset can impact our mental health which included: harming relationships, giving up, negative self-talk, and missing out on opportunities of self-improvement. Able to identify personal examples of fixed thoughts which included ?I can?t get better? ?I can?t progress in life? and ?I?m worse than others.? Client shared ?mindset dictates your whole day? and recognized it is possible to challenge fixed thoughts. Seemed to benefit from group by increasing awareness of how one's mindset impacts mental health. Pt will continue IOP tx to prevent decompensation, improve ability to cope with anxiety, and increase support. Narrative Note: []
--- NOTE | 2021-01-19 15:38 | BH.MTP_ITS ---
Master Treatment Plan - Patient Information Program Physician:: Dr. Hernandez Primary Therapist:: Le Delong, [facility] - Psychiatric Diagnoses Psychiatric Diagnoses:: Panic disorder, illness anxiety disorder ; major depressive disorder, recurrent, moderate; Adderall use disorder (sober for 3 years); marijuana use disorder (in remission for 6 months). Diagnosis Code(s):: F 45.21 - Estimated LOS Estimated LOS (in weeks):: 6 Problem/Goal #1 - Problem/Goal #1 Stated Goal:: Stabilize anxiety level while increasing ability to function on daily basis.? Description of Barriers: Pt's recent possible heart condidtion diagnosis could signficiant exasperate pt's health anxiety. Additional possible barriers include: distorted thoughts, recent separation from boyfriend of 8 years, limited support system, and racing anxious thoughts. Functional Impact: Pt referred by crisis center after pt called due to severe panic attacks and difficulty functioning. Pt has gone to ER early January believing he had life threatening medical condition. Pt unable to drive due to pt having the fear he is going to have a panic attack. Sleep is disrupted due to panic attacks in middle of night. Pt endorses depressed mood with poor concentration, anhedonia, low motivation, hopelessness and worthlessness. - Objectives Objective #1 Stated Objective: Pt will learn to identify panic symptoms, recognize anxiety triggers and learn 2-3 healthy calming strategies to reduce feelings of stress and anxiety. Interventions: Individual and group therapy to learn about the physical symptoms of panic and anxiety, stress management techniques, and relaxation skills, including deep breathing exercises, progressive muscle relaxation, and visualization. Discharge Criteria: Pt will have met goal when can identify at least 2 panic symptoms, 2 triggers and successfully utilize at least 2 calming strategies to manage anxious symptoms. Target Date: 02/23/21 Review Date: 02/09/21 Objective #2 Stated Objective: Pt will decrease anxious symptoms AEB pt?s score on the DSM 5 cross-cutting measure improve pt?s daily functioning. Interventions: Through groups and individual therapy, pt will be provided education about anxiety?s impact on body and common physiological reaction to anxiety. Therapist will teach pt appropriate breathing techniques and build healthy coping skills to manage daily anxieties. Discharge Criteria: Pt will have met this goal when pt?s score on the DSM 5 cross cutting measure for anxiety has been decreased and per pt?s report daily functioning has improved. Target Date: 02/23/21 Review Date: 02/09/21 Problem/Goal #2 - Problem/Goal #2 Stated Goal:: Client will reduce depression and hopelessness due to Major Depressive Disorder through IOP Services. Description of Barriers: Pt's recent possible heart condidtion diagnosis could signficiant exasperate pt's health anxiety. Additional possible barriers include: distorted thoughts, recent separation from boyfriend of 8 years, limited support system, and racing anxious thoughts. Functional Impact: Pt referred by crisis center after pt called due to severe panic attacks and difficulty functioning. Pt has gone to ER early January believing he had life threatening medical condition. Pt unable to drive due to pt having the fear he is going to have a panic attack. Sleep is disrupted due to panic attacks in middle of night. Pt endorses depressed mood with poor concentration, anhedonia, low motivation, hopelessness and worthlessness. - Objectives Objective #1 Stated Objective: Client will identify 2-3 coping strategies to help manage depressive symptoms. Interventions: Therapist will utilize CBT techniques to assist client with understanding the connection between thoughts, feelings and behaviors. Education will be provided on behavioral activation. Therapist will assist client in learning internal coping strategies to manage depressive symptoms, along with helping client identify triggers. Discharge Criteria: Client will have achieved this goal when can verbalize and practiced at least 2 healthy coping strategies that successfully manage depressive symptoms. Target Date: 02/23/21 Review Date: 02/09/21 Objective #2 Stated Objective: Pt will decrease depressive symptoms AEB pt?s score on the DSM 5 cross-cutting measure and improve pt?s daily functioning. Interventions: Through groups and individual therapy, pt will be provided with education on cognitive distortions, mistaken beliefs, and identifying and combating negative self-talk. Therapist will assist pt with getting back into the activities she once enjoyed as well as increasing healthy coping strategies. Discharge Criteria: Pt will have met this goal when pt?s score on the DSM 5 cross cutting measure for depression has been decreased and per pt?s report daily functioning has improved. Target Date: 02/23/21 Review Date: 02/09/21
--- NOTE | 2021-01-19 16:13 | BH.MDN_ITS ---
Multi-Disciplinary Note - Note 60-min Individual Time Started:: 11:30 Date: 01/19/21 Purpose of session/treatment goals addressed:: Purpose of session was to assess pt's current symptoms, stressors and gather background information. Process recent stressor. Additional focus on identifying master treatment plan goals for IOP. Eye Contact:: Fair Motor Activity:: Restless Appearance:: Disheveled Speech:: Appropriate Mood:: Anxious Affect:: Constricted Thoughts:: Linear, Logical, No evidence of hallucinations/delusions noted Staff Interventions:: Therapist used open ended questions to elicit pt's current symptoms and stressors. Therapist elicited background information to help with understanding contributing factors to pt's current mental health distress. Collaborated with pt to identify treatment goals for IOP. Provided support by using active listening and validating emotions. Client Response:: Pt reported yesterday he went to the ER because was having chest pains. Pt stated he has a problem with going to the ER too frequently when has any body pain becasue thinks it is the worst case scenairo. Pt stated the doctor said that his heart rate was very high and concerned patient might have Supraventricular tachycardia (SVT). Pt reported he keeps having flashbacks to the ER visit yesterday because there were 6 people in his room and a crash cart. Pt stated he thinks his panic causes a high heart rate. Pt reported the ER doctor told him that the SVT could be why pt experiences panic attacks and referred him to a [facility]. Pt stated he is trying to remind himself that the doctor told him SVT is not a serious condidtion and can easily be treated. Pt reported this experience has exasperated his medical anxiety significantly. Pt shared his panic attacks started after his mom 10 years ago from COPD. Pt stated his panic attacks were infrequent until 6 months ago after he stopped smoking marijuana due to low motivation and procrastination. Pt stated in the last 3 weeks his panic attacks and fear of became so severe that he called the crisis center because didn't know what else to do. Pt reported his anxiety significant impacts his sleep because he will wake up some nights due to having panic attacks, only getting 2-3 hours of sleep. Pt stated anxiety prevents him from driving because he fears having a panic attack. Pt reported panic attacks are keeping him from being able to work as well. Pt reported while in IOP he wants to learn how to manage his anxiety using healthy coping skills. Pt admitted he has used marijuana and adderall in the past as self-medication techniques. Pt reported he also wants to work on being able to manage his irrational thought patterns that he has some life threatening disease. Would also like to work on learning how to live in the moment because so much of his time is spent in the past or future. Pt reported two small goasl for the week are to walk once a day for 15 to 20 minutes and to eat a meal. Pt stated his anxiety makes it hard for him to eat due to feeling sick but knows it is important to eat to he has energy throughout the day. Risks/Concerns:: Pt denies suicidal ideation, plan or intention to date. Progress Toward Goals/Plan:: Limited progress. Pt's first week in IOP. He is engaged in group and has insight. Pt using calming skills to help him stay engaged and active participant during groups. ER visit yesterday and being told of possible heart condition has signficiantly increased anxiety. Able to identify wins this past week and some coping skills learned so is benefiting. PPlan is to continue in [facility] to increase health coping, prevent decompensation, and improve functioning. Time Stopped:: 12:25
--- NOTE | 2021-01-20 10:10 | BH.SGPN.GN ---
Behaviors/Verbalizations/Mental Status: [] Eye contact is good. Motor activity is appropriate. Appearance is disheveled. Speech is Appropriate. Mood is anxious. Affect is congruent. Thoughts are linear and logical. No evidence of psychosis. Client Response/Progress/Benefit: [] Pt was disctracted during group dicsussion and psychoeducation. Prior to group pt had a panic attack and wanted to leave. Encouraged to utilize skills to manage anxiety which he choose adult coloring. Able to stay in group with these distraction skills with attention at times. Active participant in activity. Did well in activity with peers and was able to relate the activity to goal setting for herself. Benefited from increase insight into effective ways to set goals and was able to utilize skills. Will continue in IOP to improve functioning, increase healthy coping, and prevent decompensation. Narrative Note: []
--- NOTE | 2021-01-20 11:08 | BH.SGPN.GN ---
Behaviors/Verbalizations/Mental Status: []Eye contact is fair. Alert and oriented. Motor activity is restless. Appearance is casual. grooming is appropriate. Speech is Appropriate. Mood is anxious, depressed. Affect constricted. Thoughts appear preoccuppied due to increased anxiety. No evidence of psychosis or hallucinations. Client Response/Progress/Benefit: []Client appearing to be struggling with anxiety which impacted ability to remain attentive during discussion, providing limited input throughout and often distracted by own thoughts. However, he did well to complete challenge activity and process with the group. Client additionally was willing to complete the SMART goal worksheet. Client identified his personal goal as: ?Use more mindfulness throughout the day by taking time to practice the ?rule of 3? once daily for the next week?. Client stated this will benefit his mental health by improving ability to remain present and reduce ruminating thoughts and intrusive worry. Client identified barriers which included: distortions, high anxiety, and intrusive thoughts. Client began working to identify strategies for overcoming these obstacles, though struggled some in this area. Reports willingness to begin working on this goal as homework. Benefited from this group by developing a short-term SMART goal related to mental health. Will continue IOP tx to increase healthy coping skill repertoire, increase anxiety management, and prevent decompensation. Narrative Note: []
--- NOTE | 2021-01-22 09:00 | BH.SGPN.GN ---
Behaviors/Verbalizations/Mental Status: [] Eye contact is good. Motor activity is appropriate. Appearance is casual. Speech is Appropriate. Mood is anxious. Affect is congruent. Thoughts are linear and logical. No evidence of psychosis. Reviewed daily check in sheet and no reports of suicidal ideations or intent. Client Response/Progress/Benefit: [] Pt was an active participant in group discussion. Provided appropriate feedback. Attentive during video short on empathy vs sympathy and shared his thoughts on the video. Emotion for today is hopeful. Pt reports that he has decreased his symptom checking in the past 2 days. Not checking his pulse or focusing on his breathing. Reports that he has managed to do this for 22 hours. Distracting self. Retraining his brain. Has walked 5 miles for the past 2 days. Utilizing opposite action. Progress noted per pt report. Will continue in IOP to increase healthy coping, decrease intrusive health anxiety thoughts, and to improve functioning. Narrative Note: []
--- NOTE | 2021-01-22 10:10 | BH.SGPN.GN ---
Behaviors/Verbalizations/Mental Status: []Eye contact is good. Alert and oriented. Motor activity is appropriate. Appearance is casual. grooming is appropriate. Speech is Appropriate. Mood is euthymic. Affect is congruent. Thoughts are linear and logical. No evidence of psychosis or hallucinations. Client Response/Progress/Benefit: []Client responded well to session, engaged throughout discussion and group activity. Client shared when he feels increased anxiety, he uses avoidance behaviors and has lower functioning. Client identified his barriers to manage emotions as ?unable to identify emotions, negative self-talk, and catastrophizing.? Client shared the communication is important as it prevents him to suppress emotions as well as gain support from others. Progress noted as during the activity, client took a leadership role as it made him feel vulnerable as he had to trust others. Appeared to benefit from group as client understood the importance of managing emotions and the importance it has on daily functioning. Will continue IOP to challenge negative thoughts, promote the use of healthy coping skills, and improve daily functioning. Narrative Note: []
--- NOTE | 2021-01-22 11:10 | BH.SGPN.GN ---
Behaviors/Verbalizations/Mental Status: []Client alert and oriented, casually dressed and groomed. Eye contact good. Motor activity appropriate. Speech within normal limits. Affect congruent, mood euthymic. Thoughts linear, logical, no signs of hallucinations or delusions. Client Response/Progress/Benefit: []Client engaged in session AEB client providing limited input during discussion and completed worksheet. Attentively listening during psychoeducation on 4 zones of regulation and able to identify feelings and behaviors for each zone. Worked with group to identify coping skills one can use to support self in each zone. Client reported belief client is in the yellow zone today as client has been ?fidgety? and has some racing thoughts. Client shared ?I?m doing my best to challenge them though.? Client plans to talk a long walk today and practice thought challenging to help reduce anxiety. Benefited from increased education on zones of regulation or stages of alertness for emotions and healthy coping skills to use for each zone. Will continue IOP tx to reduce intensity of anxiety, improve the use of internal coping skills, and improve functioning. Narrative Note: []
--- NOTE | 2021-01-23 09:00 | BH.SGPN.GN ---
Behaviors/Verbalizations/Mental Status: []Client alert and oriented, casually dressed. Eye contact fair. Motor activity appropriate. Speech within normal limits. Affect congruent, mood euthymic and anxious. Thoughts linear, logical, no signs of hallucinations or delusions. Reviewed client?s symptom tracker, no risk or thoughts of suicide ideation, plan, or intent as of 01/23/21. Client Response/Progress/Benefit: []Client responded well to session, engaged throughout and participated in group discussion. Client reported feeling ?anxious? this morning. Client reported working towards her goal of ?not giving into engaging compulsions of checking pulse of googling physical symptoms.? Client stated his personal positive as recognized it being two days since checking compulsions. Client identified healthy coping skills such as opposite action, exercising, and thought challenging. Reported his stressor as difficulty falling asleep last night but was able to focus on signing a song and not escalating himself with the use of healthy distraction. Benefited from group as client offered positive support and feedback to peers. Will continue IOP to promote the use of healthy coping skills, challenge negative thoughts, and improve daily functioning. Narrative Note: []
--- NOTE | 2021-01-23 10:05 | BH.SGPN.GN ---
Behaviors/Verbalizations/Mental Status: []Client alert and oriented, casually dressed and appropriately groomed. Eye contact good. Motor activity appropriate. Speech within normal limits. Affect congruent, mood euthymic and anxious, Thoughts linear, logical, no signs of hallucinations or delusions. Client Response/Progress/Benefit: []Client receptive of session, providing input and taking notes throughout. More actively engaged than in prior sessions. Client agreed with the quote and shared how communicating can be an illusion when ?we think we communicated something but actually didn?t? Noted this often happens to him when he uses sarcasm to communicate frustrations. Group identified potential barriers to healthy communication as: anxiety, fear of other?s reactions, making assumptions, shutting down, and fear of being vulnerable. Noted a personal communication barrier as ?beating around the foster? or being overly vague about things. Client remained attentive and contributed during psychoeducation on the four communication styles, providing input and examples throughout. Benefited from increased insight regarding own communication style and impacts this has on overall mental health. Client will continue IOP to promote the use of healthy coping skills, improve anxiety management, and prevent ecompensation. Narrative Note: []
--- NOTE | 2021-01-23 11:10 | BH.SGPN.GN ---
Behaviors/Verbalizations/Mental Status: []Client alert and oriented, casually dressed and fair grooming. Eye contact fair. Motor activity appropriate. Speech within normal limits. Affect congruent, mood slightly anxious. Thoughts linear, logical, no signs of hallucinations or delusions. Client Response/Progress/Benefit: []Client engaged participant AEB her attentiveness during discussion and listened to peers. Client reported he is mostly a passive communicator. Client reported he grew up in a household in which his family were extremely aggressive communicators. Client stated he never wanted to make others feel the way he felt which has contributed to his passive communication style. Client stated this communication style negatively impacts his self-esteem. Attentive during psychoeducation about DEAR MAN (Describe, Express, Assert, Reinforce, Mindfulness, Appear confident, Negotiate) interpersonal communication skill. Client identified his communication goal is to focus on the skills of expressing and asserting by describing what he needs for support. Client seemed to benefit from increased insight into how his communication style impacts mental health and relationships. Client progressing as shown by her report of reduced anxiety. Will continue IOP tx to maintain gains, improve self-esteem and prevent decompensation.
--- NOTE | 2021-01-26 11:22 | BH.MDN_ITS ---
Multi-Disciplinary Note - Note 45-min Individual Time Started:: 10:30 Date: 01/26/21 Purpose of session/treatment goals addressed:: Pt showed up to IOP with father requesting to be seen by a therapist. Eye Contact:: Poor Motor Activity:: Restless Appearance:: Disheveled Speech:: Soft Mood:: Anxious Affect:: Congruent Thoughts:: Linear, Logical, No evidence of hallucinations/delusions noted Staff Interventions:: Addressed immidiate concerns and arranged voluntary psychiatric placement and pt and father's request. Client Response:: Pt presented today with his father after cancelling for IOP this AM. Father reports that pt decompensated this weekend. Pt reports that his anxiety has intensified and he has resumed checking behaviors which has increased his health anxiety. Significant ruminations and intrusive thoughts. Tearful. Reports difficulty making decisions or concentrating. Pt and father requesting voluntary admission to a psychiatric unit. He denies active suicidal ideations, plan, or intent. Reports passive thoughts of or desire to be to stop his anxiety. Pt presented to the ER on 01/18/21 and was told that he may have Supraventricular tachycardia (SVT). This news along with his already significant healthy anxiety exacerbated symptoms last week resulting in checking behaviors (pulse and heart rate). Was struggling however towards end of the week reported improvement was one of my best days. Over the weekend decompensated and began checking behaviors, which increased intrusive health anxiety resulting in worry, fear, and poor sleep. Pt was given 10 days of Ativan after recent ER visit on 01/18/21 which he has been using with limited benefit. Pt was able to contract for safety and denied any active suicidal ideations, plan, or intent. Thoughts are passive. Primary concern is severe anxiety, panic attacks, and poor sleep which are impacting his functioning. Call was made to [facility] and appt was set for assessment this afternoon. Pt and father both agreeable with plan. Father prefers to drive pt to [facility]. Risks/Concerns:: Refer above. Protective factors reported. Future-oriented. Reports thoughts about dying however denies suicidal ideations, plan, or intent. Does not present as immediate danger to self. No reason to call police or arrange involuntary admission, however does meet criteria for voluntary admission to psych unit to stablize anxiety and panic as well as assist with helping pt sleep. Progress Toward Goals/Plan:: Regression noted. Pt resumed checking behaviors which exacerbated anxiety and depression over the weekend. Due to current anxiety he feels unable to utilize coping skills to minimize intrusive thoughts regarding his health. Servere anxiety and panic attacks are impacting functinoing especially sleep which are primary concern. Progress in IOP has been inconsistent and due to recent stressor (ER physician telling him he has a heart condition) pt may need higher level of care to stablize. Time Stopped:: 11:15
--- NOTE | 2021-01-27 09:05 | BH.SGPN.GN ---
Behaviors/Verbalizations/Mental Status: []Client alert and oriented, casually dressed and groomed. Eye contact good. Motor activity appropriate. Speech within normal limits. Affect congruent, mood anxious. Thoughts linear, logical, no signs of hallucinations or delusions. Reviewed client?s symptom tracker, no risk for suicidal ideation, plan, or intent as of 01/27/21 Client Response/Progress/Benefit: []Client responded well to session, attentive and providing supportive feedback. Client reports feeling anxious and hopeful this morning. Client shared the weekend was really hard as client had severe anxiety and his OCD symptoms were increased. Client shared he spiraled and was almost admitted to an inpatient psychiatric hospital. Client reported something clicked when he was at the hospital and this made client realize he can cope with anxiety. Client shared he has been walking and using self-soothing talk to reduce anxiety. Client is also hoping for a medication change. Appeared to benefit from reflecting on resilience traits. Progress continues to be limited as client has good insight, but he has not been able to have prolonged mood stability. Will continue IOP tx to prevent decompensation, improve distress tolerance, and increase confidence. Narrative Note: []
--- NOTE | 2021-01-27 10:10 | BH.SGPN.GN ---
Behaviors/Verbalizations/Mental Status: [] Eye contact is good. Motor activity is appropriate. Appearance is disheveled. Speech is Appropriate. Mood is anxious. Affect is congruent. Thoughts are linear and logical. No evidence of psychosis. Client Response/Progress/Benefit: [] Pt was an active participant in group discussion and activity. Attentive during psychoeducation. Along with peers he provided insight and feedback on the definition of stress which included; negative reaction to changes, chaos, racing thoughts, physical pains, dissociation, and exhaustion. Also provided feedback on the benefits of stress which included; motivation, improved mood, helps us complete goals, and can lead to accomplishments. Completed stress jar with primary stressors being guilt, negative self-talk, sleep, relationships, and physical health. Benefited from group by identifying distress vs eustress as well as current stressors and their impact. Will continue in IOP to prevent decompensation, decrease panic, increase healthy coping. Narrative Note: []
--- NOTE | 2021-01-27 11:18 | BH.SGPN.GN ---
Behaviors/Verbalizations/Mental Status: []Client alert and oriented, casually dressed and groomed. Eye contact good. Motor activity WNL. Speech within normal limits. Affect congruent, mood anxious and euthymic. Thoughts linear, logical, no signs of hallucinations or delusions. Client Response/Progress/Benefit: []Client did well to remain engaged in session AEB listening attentively to others, providing input during session, and taking notes throughout. This is improvement as client was unable to attend group due to anxiety on previous date. Client remained an active participant during discussion about the 4 A's of managing stress and reflected with the group on the various benefits of each. Client stated he can connect with the need to practice acceptance and went on to describe struggling to accept that some of his physical health sx are a result of anxiety. Noting he has been working to adapt his mindset and be more open to avoiding reassurance seeking behaviors or engaging in checking compulsions. Seemed to benefit from increased awareness of the impact of stress on mental health and relationships, as well as increasing repertoire of stress management strategies. Client is to continue treatment to further promote healthy coping behaviors and use of anxiety management skills, and preventing decompensation. Narrative Note: []
--- NOTE | 2021-01-27 13:51 | BH.MDN_ITS ---
Multi-Disciplinary Note - Note 30-min Individual Time Started:: 11:55 Date: 01/27/21 Purpose of session/treatment goals addressed:: Reviewed events yesterday which led to getting assessed at [facility] and then declining admission. Eye Contact:: Good Motor Activity:: Restless Appearance:: Disheveled Speech:: Appropriate Mood:: Anxious Affect:: Congruent Thoughts:: Linear, Logical, No evidence of hallucinations/delusions noted Staff Interventions:: Provided educational handout on intrusive thoughts for patient to review. ALso provided handout on healthy anxiety cycle. Client Response:: Pt reports that he completed his assessment at [facility] yesterday. (refer to note yesterday for more info). Declined admission. Reports that things just clicked while he was having a panic attacks yesterday and he realized that he has more control over his thoughts and anxiety than he is giving himself credit for. He returned home and reports that he slept 7 hours last night. In good spirits today. States that on Tuesday he had his hands on his head and accidentally checked his pulse which led to decompensation. Denies SI or thoughts of today. Engaged in group today and reports being motivated. Risks/Concerns:: No concerns today. Denies any suicidal ideations, plan, intent, or plan. Progress Toward Goals/Plan:: Limited progress. Pt reports decreased anxiety, improved functioning, and improved sleep yesterday. Notes his anxiety is significantly less today. Did not follow through with recommendation of voluntary admissions yesterday. Did not nor does he currently meet criteria for involuntary admission as he is not imminent danger to himself. His anxiety however is significantly impacting his functioning. Introduced pt to intrusive thoughts workbook today. Plan is to increase aware of strategies to facility operations manager intrusive thoughts as well as the health anxiety cycle. Will continue in [facility] to maintain safety, improve functioning, and learn strategies to facility operations manager intrusive thoughts. Time Stopped:: 12:25
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
--- NOTE | 2021-01-28 09:05 | BH.SGPN.GN ---
Behaviors/Verbalizations/Mental Status: [] Eye contact is good. Motor activity is appropriate. Appearance is casual. Speech is Appropriate. Mood is anxious. Affect is congruent. Thoughts are linear and logical. No evidence of psychosis. Reviewed daily check in sheet and no reports of suicidal ideations or intent. Client Response/Progress/Benefit: [] Pt was an active participant in group discussion. Attentive. Emotion for today is anxious. Mental health win I working on sitting with my anxiety. Discussed recent reading that he has done on intrusive thoughts and shared with the group. Denies checking behaviors since Tuesday. Walking with his father in the AM. Progress noted per pt report. Benefited from group support, encouragment, and feedback. Will continue in IOP to improve functioning, stabilize mood, and decrease intrusive thoughts about health. Narrative Note: []
--- NOTE | 2021-01-28 10:00 | BH.SGPN.GN ---
Behaviors/Verbalizations/Mental Status: [] Eye contact is good. Motor activity is appropriate. Appearance is casual. Speech is Appropriate. Mood is anxious. Affect is congruent. Thoughts are linear and logical. No evidence of psychosis Client Response/Progress/Benefit: [] Pt was an active participant in group discussion and activity. Attentive during psychoeducation. Along with peers was able to identify barriers to taking action on her mental health which included; fear of failure, the unknown, change, one's environment, past negative experiences, being passive, and fear of vulnerability. Identified several symptoms and stressors that he feels are holding him back from progress such as intrusive thoughts, avoidance, and what ifs. Benefited from increased self-awareness of obstacles. Will continue in IOP to improve functioning, decrease intrusive thoughts, and prevent decompensation. Narrative Note: []
--- NOTE | 2021-01-28 11:42 | BH.COMM ---
Communication Note - Communication with Client Communication Note: Prescription for Seroquel 25mg tablets- 25mg every AM, 50 mg every HS, #90 with no refills called in to [facility]'s pharmacy in [place] per verbal order of Dr. Hernandez.
--- NOTE | 2021-01-28 12:07 | PCM.BH.PN_ITS ---
Progress Note Progress Note: History of Present Illness/Interim History: [] The patient is a 30-year-old single male who was last seen 2 weeks ago. He is seen in follow-up at the [facility] behavioral health [facility] program. The patient states that he went to the emergency room on January 18 due to severe health anxiety over the fact that he felt he was having a heart attack. He was told he may be having SVT and this made his anxiety even worse. He was doing okay but then last week and was unable to sleep much due to checking his heart rate all the time and his pulse. For this reason he was only sleeping about 2 to 3 hours a night. The most he slept was 5 hours last night. He wakes up very anxious and has had 1 panic attack in the last 2 days. The patient came to [facility] several days ago with his father and requested a psych admission. The staff arranged admission to [facility] and the patient went there and did an intake but then refused to be admitted. He states that things are better now than they were then although his anxiety is still significant. He has not smoked any marijuana for over 6 months now. However he continues to worry about having a fatal illness. His mood he says varies and sometimes he gets more depressed when he is more anxious. He has low motivation, racing thoughts and worry. When he feels down he feels hopeless and worthless but he does not always feel down. He has decreased appetite with loss of weight in the past few months. He denies any thoughts of , suicidal or homicidal ideation, hallucinations or delusions. He has not engaged in any self-harm. The patient is tolerating his increased amitriptyline dose and thinks it may have helped him but he is uncertain. The patient was given Ativan 1 mg in the emergency room and given a prescription for 10 of them which the patient says helps his anxiety greatly and it completely disappears. He requests more Ativan. Current Psychiatric Medications: [] Amitriptyline 50 mg p.o. nightly (dose increased 2 weeks ago); BuSpar which I do not believe he is picked up yet; med metoprolol 25 mg p.o. twice a day for 6 weeks now. And Vistaril 25 mg up to 3 times a day as needed for panic attacks. Mental Status Examination: [] Patient is an obese 30-year-old male with a vazquez and glasses who is seen wearing a mask due to the pandemic and is casually dressed and groomed with good hygiene. He has no psychomotor agitation or retardation. He is cooperative during the interview and has good eye contact. Speech is normal rate and rhythm and fluent with no pressure. Mood is depressed. And worried. Affect is full and normal. Thought process is goal- directed and organized. Thought content: There is no evidence of thoughts of , suicidal or homicidal ideation, hallucinations or delusions. There remains evidence of a preoccupation with a fear of and somatic focus with every symptom triggering a fear of from an illness. Intelligence is average. Judgment is intact. Insight: Some present. 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 [place] II: [] Deferred [place] III: [] Obesity, rule out LASHA [place] IV:[]] Primary support, work issues Plan: [] The patient will continue the IOP program in behavioral health at [facility] as the structure, support, education, group therapy will hopefully prevent worsening of the patient's symptoms which might require hospitalization. The patient felt safe during the interview and if at any time he does not feel safe he will let us know or go to the emergency room. The risks, options, possible complications and side effects of the medications were discussed with the patient again and he understands accepts these. I discussed with the patient that I was unwilling to prescribe him Ativan as he would develop dependence on it and its not to be used long-term for anxiety issues. In addition with his history of substance abuse it would not be a mayes way to approach his anxiety. The patient has an appointment with his care worker with an care worker but will not get into see them for at least 1 month. The patient agrees to try Seroquel since he felt too numb on SSRIs in the past. Might be preferable to his current situation with severe panic and health anxiety but he does not wish to try the SSRIs. Patient agrees to try Seroquel 25 mg. He will take 50 mg p.o. nightly and 25 mg p.o. in the morning as he wakes up anxious often. Prescription was sent in for this. I will see the patient in follow-up in 1 to 2 weeks and he will continue to follow-up with his outpatient psychiatric and medical providers.
--- NOTE | 2021-01-28 12:36 | BH.MDN ---
Multi-Disciplinary Note - Note 45-min Individual Time Started:: 11:25 Date: 01/28/21 Purpose of session/treatment goals addressed:: Addressed treatment goals 1 and 2. Eye Contact:: Fair Motor Activity:: Appropriate Appearance:: Disheveled Speech:: Appropriate Mood:: Anxious, Depressed Affect:: Congruent Thoughts:: Linear, Logical, No evidence of hallucinations/delusions noted Staff Interventions:: Education on intrusive thoughts. [place] techniques to elicit change behaviors. Client Response:: Pt tearful at times during the session. Pt reports that he is upset however understands why psychiatrist would not prescribe benzos. Able to reframe and insight that despite being on benzos he struggled over the weekend. Also was able to calm self w/o benzos. Majority of the session was spent reviewing intrusive thoughts handouts given yesterday. Identified with the concepts of worried mind, false mind, and mayes mind. Reports that he believes he would benefit most from accepting his anxious thoughts and sitting with them. Existential thoughts about purpose of life and why bother are also hindering his progress in managing anxiety. Was open to challenging his perspective on these questions and the importance of experiencing life rather and its moments. Risks/Concerns:: No risks or concerns noted. Progress Toward Goals/Plan:: Progress noted per pt report. Read and began to attempt to use some mayes mind skills. Has not checked BP or HR for 2 days. More engaged in treatment. Walking with his father in the AM. Upset and anxious about medications however was able to process and work through. Plan is to continue with IOP to prevent decompensation, decrease panic, and decrease intrusive thoughts. Time Stopped:: 12:10
--- NOTE | 2021-01-28 14:49 | BH.COMM ---
Communication Note - Communication with Client Communication Note: [facility] called for clarification of Seroquel order due to risk of QT elongation with Lexapro and Seroquel. Discussed with Dr. Hernandez. Dr. Hernandez wants Seroquel ordered for client even with recent fill of Lexapro.
--- NOTE | 2021-01-29 09:01 | BH.SGPN.GN ---
Addendum entered and electronically signed by Elidia Julio LSW 02/01/21 11:00: Client responded well to session, engaged throughout and participated in group discussion. Client reported feeling ?numb? this morning as he indicated having a really difficult conversation with his partner the previous date and is now feeling ?emotionally drained?. Shared he and his partner ultimately decided to separate to work on their own emotional health. Although client expressed knowing this is the right decision, he is feeling sad about it but ready to continue to work on stepping outside his comfort zone and improve his overall wellbeing. Noted plans to use his dad and best friend for support during the treatment process. Client benefited from support provided by group members. Will continue IOP to promote the continued use of healthy coping skills, improve daily functioning, and improve anxiety management. Original Note: Behaviors/Verbalizations/Mental Status: []Client alert and oriented, casually dressed. Eye contact good. Motor activity appropriate. Speech within normal limits. Affect congruent, mood anxious and dysthymic. Thoughts linear, logical, no signs of hallucinations or delusions. Reviewed client?s symptom tracker, no risk or thoughts of suicide ideation, plan, or intent as of 01/29/21. Client Response/Progress/Benefit: [] Narrative Note: []
--- NOTE | 2021-01-29 10:05 | BH.SGPN.GN ---
Behaviors/Verbalizations/Mental Status: []Client alert and oriented, casually dressed and groomed. Eye contact good. Motor activity restless. Speech within normal limits. Affect constricted, mood anxious. Thoughts linear, logical, no signs of hallucinations or delusions. Client Response/Progress/Benefit: []Pt was an active participant in group discussion and was attentive during psychoeducation. Provided input on the quote of the day and shared that he often catastrophizes physical symptoms. Group was primarily educational and introduced and gave examples of the 10 cognitive distortions. Pt provided some examples of personal experiences for certain cognitive distortions. Pt connected with jumping to conclusions, catastrophizing, and labeling. Benefited from education and increased awareness of cognitive distortions and role that they play in negative thoughts and emotions. Pt has awareness of distortions, but he has not been able to actively challenge these. Will continue IOP tx to prevent decompensation, improve mood stability, and improve functioning. Narrative Note: []
--- NOTE | 2021-01-29 11:05 | BH.SGPN.GN ---
Behaviors/Verbalizations/Mental Status: []Client alert and oriented, casually dressed and groomed. Eye contact good. Motor activity restless. Speech within normal limits. Affect congruent- tearful at times, mood anxious. Thoughts linear, logical, no signs of hallucinations or delusions. Client Response/Progress/Benefit: []Client was an active participant AEB client providing input throughout session and completing worksheet. However, client did appear overwhelmed by the content of group and was tearful at times. Client attentive during psychoeducation and additional discussion on cognitive distortions. Client engaged while group practiced reframing example thoughts on the board. Client then worked to identify, label, and reframe a distorted thought of their own. Client used the thought ?I?m a burden and I?m worthless.? Client labeled this as the labeling distortion and stated it makes client feel depressed and hopeless. Client reframed this thought to ?no one is perfect and I?m a good person.? Client seemed to benefit from practicing identifying and reframing distorted thoughts. Will continue IOP tx to prevent decompensation and improve daily functioning. Narrative Note: []
--- NOTE | 2021-01-30 09:05 | BH.COMM ---
Communication Note - Communication with Client Communication Note: Pt cancelled IOP this AM. States anxiety as the reason and will try and make it after first group.
--- NOTE | 2021-02-02 12:43 | BH.COMM ---
Communication Note - Communication with Client Communication Note: Pt did not show for IOP this AM. This therapist called and pt reports that he has been having vertigo. He has appt with PCP tomorrow. Reports that he began taking Seroquel and that it has helped with sleep.
== END 2021-01-30 23:59 ==
LOC: BHIOP 09:00
PROVIDERS: Referring Provider Psychiatry & Neurology Psychiatry; Visit Provider Psychiatry & Neurology Psychiatry
DX: F45.21 Hypochondriasis (principal); F41.0 Panic disorder [episodic paroxysmal anxiety]; F33.1 Major depressive disorder, recurrent, moderate; F12.90 Cannabis use, unspecified, uncomplicated; F15.90 Other stimulant use, unspecified, uncomplicated; Z79.899 Other long term (current) drug therapy; E66.9 Obesity, unspecified
CPT/HCPCS: 90792; 99213; H0035; H2012; H2020; 90834; 90837

== ENCOUNTER 2021-01-18 11:29 | Emergency (ER) | payer MEDICAID, SELFPAY ==
[2021-01-18] VITALS (10 sets, daily range): BP systolic 132–163; BP diastolic 2–117; PULSE 92–177; RESP 14–22; TEMP 36.8; O2SAT 97–100; BMI 46.3
--- NOTE | 2021-01-18 11:52 | RAD_ITS ---
STUDY: X-RAY CHEST REASON FOR EXAM: Male, 30 years old patient with chest pain. TECHNIQUE: Single AP portable view of the chest. COMPARISON: None. FINDINGS: Cardiac monitoring leads are present. The lungs are clear and expanded. There is no demonstrated pleural abnormality. Normal size heart. Normal mediastinum and amy. Normal visualized pulmonary arteries. Normal visualized aortic arch and descending thoracic aorta. Normal visualized thoracic spine. Normal visualized ribs, clavicles, and shoulders. There is no demonstrated abnormality of the visualized soft tissue structures of the upper abdomen. RAD/Chest 1 View (Portable) IMPRESSION: No radiographic evidence of acute cardiopulmonary disease. Electronically Signed: Genie Barnes MD at 13:27 EDT , Service support ,
--- NOTE | 2021-01-18 11:52 | EKG12_ITS ---
Test Reason : CP Blood Pressure : / mmHG Vent. Rate : 096 BPM Atrial Rate : 096 BPM P-R Int : 142 ms QRS Dur : 088 ms QT Int : 362 ms P-R-T Axes : 011 020 017 degrees QTc Int : 457 ms Poor data quality, interpretation may be adversely affected Normal sinus rhythm Normal ECG Confirmed by DANIKA SHEEHAN, LUC ([id number]), editorial cartoonist CARSON SANTILLAN ([id number]) on 01/20/2021 8:37:15 AM Referred By: YARELIS/PJ Confirmed By:EVGENY GARNICA MD
[2021-01-18] MEDS: 0.9% Normal Saline 1,000 ML 150 ML IV (12:04)
[2021-01-18] MEDS: DiphenhydrAMINE 50 MG/ML Syringe 25 MG IV (12:04)
[2021-01-18] MEDS: Ketorolac 15 MG/ML Vial IV (12:05)
[2021-01-18] MEDS: Metoclopramide 10 MG/2 ML Vial IV (12:06)
[2021-01-18 12:07] LABS: Absolute Lymphocyte Count 2.67 X10^3/uL (0.83-4.51); Absolute Neutrophil Count 6.8 X10^3/uL (2.0-7.7); Basophil# 0.07 X10^3/uL; Basophil% 0.7 % (0-1); Eosinophil# 0.03 X10^3/uL; Eosinophils% 0.3 % (0-5); Hematocrit 44.3 % (40-54); Hemoglobin 14.9 g/dL (13.0-16.5); Lymphocyte # 2.67 X10^3/ul (0.83-4.51); Lymphocyte % 26.2 % (19-41); Mean Corp Hgb Conc 33.6 g/dL (32-36); Mean Corpuscular Volume 86.4 fL (80-94); Mean Platelet Vol. 9.4 fl (6.2-12.0); Monocyte# 0.59 X10^3/uL; Monocyte% 5.8 % (0-10); NRBC Flagged by Analyzer 0 % (0-5); Neutrophil # 6.79 X10^3/uL (2.7-7.7); Neutrophil % 66.6 % (47-70); Platelet Count 341 K/mm3 (150-450); RBC Distribution Width CV 12.6 % (11.6-14.6); RBC Distribution Width SD 39.8 fl (35.1-43.9); Red Blood Count 5.13 M/mm3 (4.6-6.2); White Blood Count 10.2 K/mm3 (4.4-11.0)
[2021-01-18] MEDS: Adenosine 6 MG/2 ML Syringe IV (12:10)
[2021-01-18] MEDS: Adenosine 6 MG/2 ML Syringe 12 MG IV (12:15)
[2021-01-18 12:20] LABS: Anion Gap 6 (5-15); BUN 14 mg/dL (7-18); BUN/Creat Ratio 15.8 RATIO (10-20); Calcium,Total 8.7 mg/dL (8.5-10.1); Chloride 108 mmol/L (98-107); Creatinine, Serum 0.89 mg/dL (0.70-1.30); EST Glomerular Filtration Rate 107 mL/min (>60); Est Glom Filt Rate - Afr Amer 130 mL/min (>60); Estimated Creatinine Clearance 122.47 ml/min; Glucose 98 mg/dL (74-106); Sodium Level 138 mmol/L (136-145)
[2021-01-18] MEDS: LORazepam 2 MG/ML Syringe 1 MG IV (12:22)
[2021-01-18] MEDS: Metoprolol Tartrate 5 MG/5 ML Vial IV ×3 (12:24→12:36)
--- NOTE | 2021-01-18 12:26 | EKG12_ITS ---
Test Reason : WAS IN SVT Blood Pressure : / mmHG Vent. Rate : 112 BPM Atrial Rate : 112 BPM P-R Int : 156 ms QRS Dur : 090 ms QT Int : 350 ms P-R-T Axes : 023 024 023 degrees QTc Int : 477 ms Sinus tachycardia Nonspecific ST abnormality Abnormal ECG Confirmed by DANIKA SHEEHAN, LUC ([id number]), editor farm journal CARSON SANTILLAN ([id number]) on 01/20/2021 8:37:46 AM Referred By: PJ Confirmed By:EVGENY GARNICA MD
--- NOTE | 2021-01-18 13:47 | ED.VISSUMM ---
- ER Visit Summary Date of Service: 01/18/21 Chief Complaint: Chest pain History of Present Illness: The patient is a 30 M who goes to the [facility]. He reports he has chest pain that began today approximately an hour ago when he was just getting up from sleep. He describes as a dull, aching pain Zeta 10 at worst and 5-10 currently. Is worsened by nothing including exertion, breathing, or movement. Is relieved by taking deep breaths. He reports has been nausea with this. He denies any vomiting, diaphoresis, shortness of breath. Patient reports he has a dull headache that is rated 10 severity that is frontal and over his nose. He had does have a history of similar headaches. Physical Examination: Vitals: Stable. Afebrile. General: Well-nourished and well-developed. Head: Normocephalic atraumatic. Neck: Supple, no lymphadenopathy. No JVD. Nontender. Cardiovascular: Regular rate and rhythm. No murmurs. Respiratory: No respiratory distress. Clear to auscultation bilaterally. Abdominal: Soft, nontender, nondistended, normal bowel sounds. No guarding, rebound, or peritoneal signs. Back: Nontender. Extremities: Nontender, no edema. Skin: Normal color, no rash. Neurologic: Alert and oriented ?3. Cranial nerves II through XII are intact. Normal strength and sensation. Psych: Anxious. Test Results: EKG is sinus at [address] changes. Is unchanged from November. Repeat EKG is unchanged. Troponin is negative. CBC is normal. Chem-7 shows a chloride of 108. Clinical Impression(s) from Imaging Studies Chest X-Ray 01/18/21 11:52 IMPRESSION: No radiographic evidence of acute cardiopulmonary disease. Electronically Signed: Genie Barnes MD at 13:27 EDT , Service support , Emergency Department Course and Treatment: During his stay in the emergency department patient was given Toradol, Reglan, and Benadryl IV. He was very anxious and actually went into SVT with a heart rate in the one seventies. During this he was hyperventilating and complained of paresthesias in his hands and his face. He was given adenosine IV with no pause in the rhythm. He was then given 12 mg of adenosine IV with no pause. With vagal maneuvers for scribe pushing for on his stomach he converted into sinus rhythm but was tachycardic in the one forties. He was given Lopressor IV and Ativan IV. On repeat exam he is resting comfortably. Treatment Plan: Patient certainly has anxiety. However, I do not believe that this is what caused his episode of SVT. I think his anxiety got worse when his SVT began. He will be discharged instructions to follow-up with electrophysiology at [facility] and is given the name of one of the professor of special education. He is also given a prescription for 10 Ativan for his anxiety. Instructed to continue the metoprolol he is already on at home. Return to the emergency department for any worsening symptoms. Disposition: To home in improved and stable condition. Impression: One. SVT. 2. Anxiety. 3. Hyperventilation. This note was generated with [employer] dictation software. It may contain incorrect words, spelling, and punctuation that were not noted in review of the chart prior to signing ED Disposition - Plan for ED Patient: Disposition: Home or Assisted Living Instructions: ED Panic Attack, ED Tachycardia: PAT Prescriptions: Lorazepam [Ativan] 1 mg PO TID PRN #10 tab PRN Reason: Anxiety Prescription Printed [facility] Additional Instructions: Follow-up with an professor of special education at [facility] for SVT. Dr. Simms is one of the specialists and they are in electrophysiology. His phone number is [phone].
== END 2021-01-18 14:07 | disposition home or self-care (01) ==
LOC: ED 12:10
PROVIDERS: Emergency Provider Emergency Medicine
DX: I47.1 Supraventricular tachycardia (principal); F41.9 Anxiety disorder, unspecified; R06.4 Hyperventilation; J45.909 Unspecified asthma, uncomplicated; K21.9 Gastro-esophageal reflux disease without esophagitis; F17.290 Nicotine dependence, other tobacco product, uncomplicated; Z79.51 Long term (current) use of inhaled steroids; Z79.899 Other long term (current) drug therapy
CPT/HCPCS: 71045; 80048; 84484; 85025; 87426; 93005; 96361; 96374; 96375; 99284; J7030; J0153

== ENCOUNTER 2021-02-02 08:46 | Outpatient (RCR) | payer MEDICAID, SELFPAY ==
[2021-01-18 11:30] VITALS: BMI 46.3
[2021-01-31 00:55] VITALS: BP 135/86; PULSE 82
--- NOTE | 2021-02-04 09:00 | BH.SGPN.GN ---
Behaviors/Verbalizations/Mental Status: [] Eye contact is good. Motor activity is appropriate. Appearance is casual. Speech is Appropriate. Mood is anxious. Affect is congruent. Thoughts are linear and logical. No evidence of psychosis. Reviewed daily check in sheet and no reports of suicidal ideations or intent. Client Response/Progress/Benefit: [] Pt was an active participant in group discussion. Attentive. Provided appropriate feedback to peers. Pt states that his mental health win is I'm here and sitting with my anxiety. Reports the he believes that he is generally feeling better however has significant urges to check his pulse and his concerned about being off balance. Improved sleep however notes that his dreams are vivid and are about healthy anxiety. Shared that his BF of 8 years moved out last weekend and I should care more however he is focused on his ruminations. He is wearing gloves throughout group which he states ensure that he doesn't try to check his pulse. Limted progress noted. Benefited from group support, encouragement, and feedback. Will continue in IOP to improve functioning and decrease intrusive thoughts. Narrative Note: []
--- NOTE | 2021-02-04 11:32 | BH.MDN_ITS ---
Multi-Disciplinary Note - Note 30-min Individual Time Started:: 10:30 Date: 02/04/21 Purpose of session/treatment goals addressed:: Pt left group early due to ruminating on healthy anxiety. He sought this therapist out in his office. Eye Contact:: Poor Motor Activity:: Restless Appearance:: Disheveled Speech:: Appropriate Mood:: Anxious Affect:: Congruent Thoughts:: Linear, Logical, No evidence of hallucinations/delusions noted Staff Interventions:: Worked with pt to re-frame and challenge what if thinking. Gave homework to write down medication anxiety and fears to discuss with psychiatrist next week so these can be addressed. Client Response:: Pt breathing heavy stating his anxiety is too much... I called my dad to come get me. Focusing on feeling unbalanced. Severe intrusive thoughts regarding anxiety. Able to calm after a few minutes of discussion and thought reframing and mayes mind statements. He has an array of what if thoughts regarding his medications. He met with his PCP yesterday regarding the feelings of being unbalanced and she prescribed a medication for dizziness which pt states won't help despite never having tried it. He states that what he has is more than dizziness. Also concerned about taking another medication. He is not taking medication prescribed last week as directed. Only taking Seroquel 25mg nightly which he states has helped with sleep. He is fearful to take more than one medication at a times which causes his nightly routine to be very complicated. Numerous other what if thoughts about combining certain medications. He was encouraged to write down his medicat ion routine and questions so these can be addressed her next week. (Was scheduled to see psychiatrist today however requests to go home). Risks/Concerns:: No risks or concerns for safety. Progress Toward Goals/Plan:: Limited progress. Pt is sleeping better however new symptom (vertigo) has increased his health anxiety and fear. Does well at times to manage intrusive thoughts however overall struggles which is impacting functioning. Non-compliant with medications. Talked himself out of taking medication to help with dizziness. Inconsistent use of skills. Pt's BF also moved out due to pt's healthy ruminations however pt states I'm more focused on my health than that which is weird. Able to calm and manage anxiety with reassurance and support of others, however would benefit from the ability to self soothe and accept anxiety by himself. Will continue in IOP to improve functioning and decrease intrusive thoughts. We developed a plan to increase consistent attendance were pt will meet with individual therapist at 9am on Tuesday and Fridays to work on intrusive thoughts. Encouraged him to take medications as prescribed. Time Stopped:: 11:00
--- NOTE | 2021-02-06 09:00 | BH.SGPN.GN ---
Behaviors/Verbalizations/Mental Status: [] Eye contact is good. Motor activity is appropriate. Appearance is disheveled. Speech is Appropriate. Mood is anxious. Affect is congruent. Thoughts are linear and logical. No evidence of psychosis. Reviewed daily check in sheet and no reports of suicidal ideations or intent. Client Response/Progress/Benefit: [] Pt was an active participant in group discussion on short video. Video was on strategies to help with sleep. Attentive. Provided appropriate feedback. Emotion for today is on edge. Reports that yesterday was best day this month. Sitting with uncomfortable feelings and sensations this AM. He discussed skills that he is using believes that he is improving in his ability to manage anxiety, intrusive thoughts, and panic. Progress noted per pt report. Benefited from group discussion, encouragement, and support. Will continue in IOP to prevent decompensation, increase strategies to manage intrusive thoughts, and stablize mood. Narrative Note: []
--- NOTE | 2021-02-06 10:11 | BH.SGPN.GN ---
Behaviors/Verbalizations/Mental Status: []Client alert and oriented, casually dressed and groomed. Eye contact good. Motor activity appropriate. Speech within normal limits. Affect congruent, mood anxious and euthymic. Thoughts linear, logical, no signs of hallucinations or delusions. Client Response/Progress/Benefit: []Client engaged in session, contributing to discussion and taking notes throughout. Client identified negative thinking and habit as things that keep people stuck from solving problems and improving their mental health. Client participated in the discussion of problem-solving examples and the barriers that come with this. Client shared he has struggled with assuming the worst, negative self-talk, and letting past setbacks prevent him from effectively problem solving in the past. Contributed to group discussion on the benefits of effective problem-solving on mental health, sharing improved confidence as a potential benefit. Client worked with peers to brainstorm the components of A,B,C,D,E problem solving method. Client seemed to benefit from learning problem solving methods and identifying potential barriers to effective problem-solving. Continues to struggle with symptoms of anxiety and negative thinking which impact ability to maintain consistent mood stability. Will continue IOP tx to prevent decompensation, promote continued skill implementation, and improve sx management. Narrative Note: []
--- NOTE | 2021-02-06 14:10 | BH.MDN_ITS ---
Multi-Disciplinary Note - Note 60-min Individual Time Started:: 11:10 Date: 02/06/21 Purpose of session/treatment goals addressed:: Met with pt to review current symptoms and progress in IOP. Addressed treatment goals 1 and 2. Eye Contact:: Good Motor Activity:: Restless Appearance:: Disheveled Speech:: Appropriate Mood:: Anxious Affect:: Congruent Thoughts:: Linear, Logical, No evidence of hallucinations/delusions noted Staff Interventions:: Reviewed and discussing latest handout on myths of intrusive thoughts. Gave next handout for pt to review. Praised pt for his efforts. Worked with patient on mayes mind statements and affirmations. Worked on skills to utilize over the weekend. Utilized [place] techniques to elicit change behaviors. Client Response:: Met with patient to review intrusive thoughts handouts and skills. Pt reports improved mood and increased confidence in managing anxiety and intrusive thoughts since 02/04/21. Reports that he has only had one panic attack this week and yesterday was the best day this month Pt is responding well to intrusive thoughts workbook. He is utilizing mayes mind skills. Finding healthy ways to direct energy and increased ability to identify anxiety earlier. Also believes that improved sleep has been helpful as he is more rested and less irritable making utilizing skills easier. Has mayes mind affirmations. Problem- solved areas associated with finding work. Risks/Concerns:: no risks or concerns noted Progress Toward Goals/Plan:: Progress noted per pt report. Utilizing skills, improved sleep, and managing intrusive thoughts. Future-oriented. Pt's progress has been inconsistent with weekends and early week being most problematic. Slightest psychosomatic occurence can trigger decompensation and abandoning skills. He is working through intrusive thoughts workbook however this is not a fast process. Still is not taking medications as prescribed however has seen benefits from Seroquel. Will continue in IOP to prevent decompensation and improve daily functioning. Time Stopped:: 12:05
--- NOTE | 2021-02-09 09:10 | BH.SGPN.GN ---
Behaviors/Verbalizations/Mental Status: [] Eye contact is good. Motor activity is appropriate. Appearance is casual. Speech is Appropriate. Mood is anxious. Affect is congruent. Thoughts are linear and logical. No evidence of psychosis. Reviewed daily check in sheet and no reports of suicidal ideations or intent. Client Response/Progress/Benefit: [] Pt was an active participant in group discussion on blame. Attentive. Provided appropriate feedback to peers. Emotion for today is Hopeful and Anxious. Mental health wins are that he believes that his panic attacks are reducing. Increased confidence in his ability to manage emotions. He did have panic attacks this AM however I'm here. Actively using skills and trying to work through anxiety rather than isolate or avoid. Admits that anxiety and panic still impact functioning. It takes everything I have not to check my pulse right now Understands that these behaviors are false comfort and will only exacerbate symptoms. Benefited from group feedback, support, and encouragement. Progress noted per pt report. Will continue in IOP to prevent decompensation, stabilize mood, and decrease intrusive thoughts. Narrative Note: []
--- NOTE | 2021-02-09 11:21 | BH.SGPN.GN ---
Behaviors/Verbalizations/Mental Status: []Client alert and oriented, casually dressed and groomed. Eye contact good. Motor activity appropriate. Speech within normal limits. Affect congruent, mood euthymic and anxious. Thoughts linear, logical, no signs of hallucinations or delusions. Client Response/Progress/Benefit: []Client engaged in session AEB contributing input to discussion, attentively listening to others, and taking notes throughout. Client providing feedback throughout discussion reviewing remaining conflict resolution styles. Shared example of how accommodating can become detrimental as it can led to others feeling your opinions are disingenuous. Contributed to discussion on strategies for more effectively managing conflict in own life. Client identified wanting to use more collaborative approaches to conflict as he typically struggles with either avoiding or just going along with others and ends up not advocating for his own opinions. Shared he could begin working on doing so by improving upon his willingness to communicate more openly rather than shutting down immediately. Appeared to benefit from learning strategies to better manage conflict. Will continue IOP tx to continue to improve management of symptoms, improve healthy coping, and improve daily functioning. Narrative Note: []
--- NOTE | 2021-02-09 11:27 | BH.MDN ---
Multi-Disciplinary Note - Note 60-min Individual Time Started:: 10:10 Date: 02/09/21 Purpose of session/treatment goals addressed:: Addressed treatment goals 1 and 2. Eye Contact:: Fair Motor Activity:: Restless Appearance:: Disheveled Speech:: Appropriate Mood:: Anxious Affect:: Congruent Thoughts:: Linear, Logical, No evidence of hallucinations/delusions noted Staff Interventions:: Utilized AK techniques to elicit change. Reviewed intrusive thoughts educational handouts. Discussed healthy communication strategies. Client Response:: Pt presents today reporting that he had a panic attacks this AM and is currently ruminating on somatic symptoms (heart rate and feeling heavy). Was visibly restless at times getting up and walking while breathing. Upset when topic of uncertainty was brought up. Admits to trouble with not having control. Insight that he can't avoid that. He worked with therapist on sitting with uncomfortable thoughts and feelings while completing session. Discussed worried voice, false comfort, and mayes mind strategies. Reviewed intrusive thoughts handout. He also talked about wanting to improve relationship with his siblings and why he feels this will be helpful. Conflicted relationship with resentments. Set goal to have phone conversation with one sibling to discuss his desire to improve relationship. Risks/Concerns:: none reported Progress Toward Goals/Plan:: Progress noted. Pt reports decrease in panic attacks with none on Tuesday. Working through panic and intrusive thoughts more effectively. Weekends have always been problematic however gradual improvements over the past 2 weekends. Anxiety however and psychosomatic issues still impacting functioning. Since his off balance has resolved he has focused on HR and pulse. These thoughts occur frequently throughout the day. Utilizing skills with sporadic effectiveness. Relies on father for reassurance. Completed DSM 4 and scores reduced a point. Plan is to continue to work on strategies to manage intrusive thoughts and at his request improve relationship with siblings. Will continue in IOP to improve functioning, increase healthy coping, and prevent decompensation. Time Stopped:: 11:15
--- NOTE | 2021-02-11 09:00 | BH.SGPN.GN ---
Behaviors/Verbalizations/Mental Status: [] Eye contact is good. Motor activity is appropriate. Appearance is disheveled. Speech is Appropriate. Mood is anxious. Affect is congruent. Thoughts are linear and logical. No evidence of psychosis. Reviewed daily check in sheet and no reports of suicidal ideations or intent. Client Response/Progress/Benefit: [] Pt was an active participant in group discussion. Attentive. Mental health win was continuing with goals to walk everyday. Completed 5 mile walk yesterday. Anxiety and intrusive health thoughts continue to occur throughout the day, however increased confidence in managing intrusive thoughts. Shared with the group the skills that he has been utilizing. He reports that he actually caused a panic attack yesterday. He states that this Was a good thing and he proved to himself that his thoughts alone could cause somatic sensations and fear. He found this exercise to be empowering. Progress noted per pt report. Benefited from group support, encouragement, and feedback. Will continue in IOP to maintain gains, improve functioning, and stabilize anxiety. Narrative Note: []
--- NOTE | 2021-02-11 10:10 | BH.SGPN.GN ---
Behaviors/Verbalizations/Mental Status: []Client alert and oriented, neatly dressed and groomed. Eye contact good. Motor activity appropriate. Speech within normal limits. Affect congruent, mood euthymic and anxious. Thoughts linear, logical, no signs of hallucinations or delusions. Client Response/Progress/Benefit: []Client engaged participant AEB listening to peers and providing to discussion. Client commented on the quote as well as unhealthy coping skills. Client stated in the past he has used unhealthy coping skills ?because I feared facing my problems.? Client gave examples of unhealthy coping skills such as ?any kind of distraction I could find.? Group shared that people tend to use unhealthy coping skills because they are easier and provide quick relief. Client participated in the group activity and connected that a healthy foundation of coping skills is composed of healthy internal and external coping skills. Client seemed to benefit from increased awareness of the importance of increasing healthy coping skills and consequences of utilizing unhealthy coping skills. Will continue IOP tx to promote gains, improve mood stability, and continue to improve functioning. Narrative Note: []
--- NOTE | 2021-02-11 11:12 | BH.SGPN.GN ---
Behaviors/Verbalizations/Mental Status: []Client alert and oriented, casually dressed and groomed. Eye contact good. Motor activity appropriate. Speech within normal limits. Affect congruent, mood anxious and euthymic. Thoughts linear, logical, no signs of hallucinations or delusions Client Response/Progress/Benefit: []Client responded well to session, taking notes and contributing throughout. Appearing more able to actively engage and less distracted by own thoughts than in prior sessions. Group discussed the different categories of coping skills which included distraction, emotional release, grounding, self-love, and thought challenging. Client participated in creating a coping skills ?menu? from the five categories of coping skills. Client's coping skill menu included: writing, singing, using the 5-senses skill, setting personal goals, and reframing. Client has been using grounding and reframing skills, but wants to get better at challenging negative self-talk and managing intrusive thoughts proactively. Appeared to benefit from increasing repertoire of healthy coping skills. Will continue tx to further improve daily functioning, increase confidence as client continues to combat health anxiety, and combat distortions. Narrative Note: []
--- NOTE | 2021-02-11 12:28 | PCM.BH.PN ---
Progress Note Progress Note: History of Present Illness/Interim History: [] The patient is a 30-year-old single male who was last seen about 2 weeks ago. The patient states that he is feeling a lot better since taking the Seroquel. He first took it only once a day but for the past week he has been taking Seroquel 25 mg p.o. twice daily and feels that his sleep is much improved and his anxiety is much lessened. He says he has panic attacks much less often and they do not last very long when he does have them. He is sleeping 7 hours a night straight through now. His mood is better and he feels optimistic. He has been checking his pulse much less and feels his health anxiety is somewhat improved. He is able to use skills he is learning in the IOP program to distract himself from his health concerns. He feels he is really benefiting from the program. He denies passive thoughts of , suicidal or homicidal ideation, hallucinations or delusions. He continues to be sober from marijuana use. He is also exercising and walking for a total of almost 5 miles a day now and feels this is helping him also. Current Psychiatric Medications: [] Seroquel 25 mg p.o. twice daily (once during the day and once at bedtime); BuSpar 10 mg p.o. twice daily; Vistaril: He is not needing to use this now.; Metoprolol 25 mg twice a day. Mental Status Examination: [] The patient is an obese 30-year-old male with a vazquez and who is also wearing a mask due to the pandemic. He is also wearing a hat and is mildly disheveled. He has no psychomotor agitation or retardation. He has good eye contact and speech is normal rate and rhythm and fluent with no pressure. Mood is euthymic today. Affect is full and normal. Thought process is goal-directed and organized. Thought content: There is no evidence of passive thoughts of , suicidal or homicidal ideation, hallucinations or delusions. He has still some preoccupation with somatic focus and fear of from an illness but this has lessened. Judgment is intact. Insight: Fair. Impulsivity: Low. 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 The patient felt safe during the interview and if it anytime he does not feel safe he will let us know or go to the emergency room. The risks, options, possible complications and side effects of the medications were discussed with the patient again and he understands and accepts these. The patient will continue to maintain his sobriety from marijuana and all drugs. The patient will continue the medications at their current doses. He will continue to follow-up with his outpatient psychiatric and medical providers.
--- NOTE | 2021-02-11 13:16 | BH.MTP_ITS ---
Treatment Plan Review Date of Admission:: 01/12/21 Date of Treatment Plan Review:: 02/11/21 Admitting Diagnoses:: Illness Anxiety Disorder, Panic Disorder Current Diagnoses:: Illness Anxiety Disorder, Panic Disorder Patient's Response to Treatment:: Pt has shown inconsistent progress over the past 4 weeks. Struggles with external stressors and consistent management of intrusive thoughts. Inconsistent attendance. Often cancelled and would leave early due to anxiety however improvement for the past week and reports decrease in frequency, intensity, and severity of panic attacks and intrusive thoughts. Status of Current Problems and Symptoms: Pt has shown progress on treatment plan goals. According to DSM-5 pt had a 1% decrease in overall symptoms since starting IOP. Depression scale indicates a 17% decrease and anxiety remains unchanged. Somatic concerns shows a 25% decrease which is a positive as health anxiety is primary issue. Problem #1 Problem Name:: Stabilize Anxiety and inmprove functioning Status of Goals:: Outcomes show that anxiety scores have remained the same however psychosomatic symptoms have decreased. Pt is able to identify healthy co ping skills for anxiety and intrusive thoughts and utilize skills at times. Struggles with consistent use of skills and reducing checking and reassurance seeking which makes symptoms worse. Team Recommendations:: Increase education on how anxiety impacts the body. All or nothing thinking therefore would recommend opposite actions skills and pushing through resistance. Problem #2 Problem Name:: Reduce depression and hopelessness Status of Goals:: DSM indicates 25% reducation in depression scores. Managing depression and feelings of hopeless more effectively than anxiety. Pt and partner broke up recently and he has been managing this well. Utilizing skills learned in IOP. Team Recommendations:: Continues to have numerous thoughts that he is worhless and a burden. Will continue to work on education on cognitive distortions. Encourged group work and consistent attendance.
--- NOTE | 2021-02-13 10:05 | BH.SGPN.GN ---
Behaviors/Verbalizations/Mental Status: [] Eye contact is good. Motor activity is appropriate. Appearance is disheveled. Speech is Appropriate. Mood is anxious. Affect is congruent. Thoughts are linear and logical. No evidence of psychosis. Client Response/Progress/Benefit: [] Pt was an active participant in group discussions and activity. Attentive during psychoeducation. Scott pictures depicting his current and desired reality and shared with the group. Current reality involved him being in space surrounded by barriers which keep him tracks. Barriers that keep him trapped are anxiety and intrusive thoughts. His desired reality involved coming back down to earth by breaking through some barriers. Identified that skills that would help move her from current to desired would be sitting with his anxiety. Benefited from group by increasing current awareness and expectations for progress. Will continue in IOP to stabilize anxiety and intrusive health thoughts to improve functioning. Narrative Note: []
--- NOTE | 2021-02-13 11:34 | BH.MDN ---
Multi-Disciplinary Note - Note 60-min Individual Time Started:: 09:00 Date: 02/13/21 Purpose of session/treatment goals addressed:: Addressed treatment goal number 1 Eye Contact:: Good Motor Activity:: Appropriate Appearance:: Disheveled Speech:: Appropriate Mood:: Anxious Affect:: Congruent Thoughts:: Linear, Logical, No evidence of hallucinations/delusions noted Staff Interventions:: Utilized PR techniques to elicit change behaviors. Provided handout on what occurs in the body during panic and fear. Client Response:: Pt began the session talking about how coming to IOP is anxiety producing. Identified that talking infront of others and being vulnerable are primary reasons it causes anxiety. 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 Overall progress noted I've only had 2 panic attacks this week which is improvement from multiple panic daily. Increased confidence in managing healthy anxiety and psychosomatic sensations. While discussing a recent event involving his health anxiety he began to get anxiety Why am I having a panic attack now. He utilized some breathing, sat down, and continued to talk with therapist. Its better than a few weeks ago when I would have had panic and called my dad to come get me. Responding well to education on intrusive thoughts and mayes mind techniques. He also talked about the ending of his relationship. Insight that his needs were not met and that he may have remained in the relationship just to not be alone. Also shared that he drove for the first time in several months yesterday. Had not been driving due to his anxiety. Risks/Concerns:: none noted Progress Toward Goals/Plan:: Progress noted. Decreased severity, frequency, and intensity of panic attacks. Increased confidence in his ability to manage anxiety. Able to identify that his health anxiety thoughts are just thoughts and he is not in danger. Improved functioning as he drove for the first time in several months. He does continue to have several intrusive thoughts regarding his health throughout the day which do impact his functioning. Had mild panic attack in session when recounting a sensation that he had. Will continue in [facility] to maintain gains and improve functioning. Time Stopped:: 10:00
--- NOTE | 2021-02-16 09:00 | BH.SGPN.GN ---
Behaviors/Verbalizations/Mental Status: [] Eye contact is good. Motor activity is appropriate. Appearance is casual. Speech is Appropriate. Mood is depressed. Affect is flat. Thoughts are linear and logical. No evidence of psychosis. Reviewed daily check in sheet and no reports of suicidal ideations or intent. Client Response/Progress/Benefit: [] Pt was an active participant in group discussion. Attentive. Provided appropriate feedback. Emotion for today is depressed. Shared mental health wins as walking 11 miles this weekend. Reports some setbacks this weekend related to anxiety producing event. He briefly discussed the event which he reports made him on-edge and he reverting back to checking behaviors (pulse, HR). He utilized skills which did help minimize symptoms. Group shared some feedback and suggestions on ways to manage this event in the future which pt reports was beneficial. Progress noted. Will continue in IOP to maintain gains, improve functioning, and minimize imnpact of intrusive thoughts. Narrative Note: []
--- NOTE | 2021-02-16 10:05 | BH.SGPN.GN ---
Behaviors/Verbalizations/Mental Status: []Client alert and oriented, neatly dressed and groomed. Eye contact good. Motor activity appropriate. Speech within normal limits. Affect congruent, mood euthymic. Thoughts linear, logical, no signs of hallucinations or delusions. Client Response/Progress/Benefit: []Pt was an active participant, taking notes and contributing to discussion. Connected with quote and shared forces in life can look like choices a person makes. Client gave recent example of his choice to eat healthy and have a more active lifestyle. Attentive during psychoeducation. Pt worked with group to identify forces that can impact growth and overall mental health. Pt engaged during the metaphor and shared that perspective can be a positive or a negative force in a person?s life. Group discussed examples of positive forces such as healthy coping skills and insight, as well as negative forces such as distorted thoughts. Pt benefited from increased awareness of the impact positive and negative forces can have on mental health and personal growth. Will continue IOP tx to promote gains, further improve functioning, and reduce distorted thoughts. Narrative Note: []
--- NOTE | 2021-02-16 11:06 | BH.SGPN.GN ---
Behaviors/Verbalizations/Mental Status: []Client alert and oriented, casually dressed and groomed. Eye contact good. Motor activity appropriate. Speech WNL. Affect congruent, mood anxious and euthymic. Thoughts linear, logical, no signs of hallucinations or delusions. Client Response/Progress/Benefit: []Pt engaged during session AEB providing input and examples throughout group discussion, completing worksheet, and listening attentively to peers. Group processed the activity and identified positive and negative forces impacting ability to complete the challenge. Pt was attentive during psychoeducation and appeared to benefit from increased insight on the impact of own personal negative and positive forces on mental wellness. Identified personal positive forces as: exercise, opposite action, thought challenging, setting small goals, and writing poetry. Identified negative forces: cognitive distortions, negative self-talk, intrusive thoughts, procrastination, and low self-esteem. Identified wanting to focus on reducing procrastination by setting small goals and using more opposite action to achieve these goals. Pt reports progress since beginning to more actively use coping skills identified. Recommended continued IOP tx to increase consistent skill application, continue to reduce health anxiety, and prevent decompensation. Narrative Note: []
--- NOTE | 2021-02-18 10:10 | BH.SGPN.GN ---
Behaviors/Verbalizations/Mental Status: []Client alert and oriented, casually dressed and groomed. Eye contact fair. Motor activity appropriate. Speech within normal limits. Affect congruent. Mood euthymic, slightly anxious. Thoughts linear, logical, no signs of hallucinations or delusions. Client Response/Progress/Benefit: []Pt responded well to session AEB pt providing input and listening attentively to peers. Worked with group to identify external barriers that can keep us stuck include: intrusive thoughts, anxiety, outside stressors, past trauma, environment, work place, and mental health. Worked with group to identify internal barriers that keep us stuck include: fear of failure, avoidance, negative self-talk, shut down, avoidance, sleep, using substances, and other unhealthy coping skills. 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 Attentive to discussion about underlying thoughts behind what keeps people stuck. Pt identified negative thoughts that keep him stuck include: I'm a loser, I'm a burden, none of this matters anyway - what's the point?. Pt seemed to benefit from increased awareness of maintenance cycles. Pt to continue IOP to continue use of healthy coping, challenge distorted thoughts and prevent decompensation. Pt continue IOP to maintain gains, continue to decrease anxious symptoms and prevent decompensaton. Narrative Note: []
--- NOTE | 2021-02-18 10:51 | BH.MDN ---
Multi-Disciplinary Note - Note 60-min Individual Time Started:: 09:00 Date: 02/18/21 Purpose of session/treatment goals addressed:: Addressed treatment goals 1 and 2. Eye Contact:: Good Motor Activity:: Appropriate Appearance:: Disheveled Speech:: Appropriate Mood:: Anxious Affect:: Congruent Thoughts:: Linear, Logical, No evidence of hallucinations/delusions noted Staff Interventions:: Reviewed educational handout. Provided another handout on managing intrusive thoughts. Challenged cognitive distortions. Discussion and PR techniques to elicit change behaviors regarding relationship with sister. Client Response:: Pt read and we briefly reviewed how handout on how anxiety impacts the body. Reports increased awareness of sensations of anxiety and how thoughts and the Fear cycle has impacted his health anxiety. By avoiding and isolating when overwhelmed he notes that he has caused mild anxiety as dangerous. Has taken steps to avoid avoidance and reassurance and has seen benefits. Addressed depressive symptoms and cognitive distortions related to his relationship with sister. Wants to be able to accept her previous actions and forgive. Reports that he continues to hold grief related to his mother and still has not accepted it. No panic attacks today in session despite discussing heavy subjects. He notes that he continue to deal with intrusive thoughts about his health which impact functioning and mood however again notes improvement. Insight that his sleep schedule plays role in sensations and intrusive thoughts. Identified obstacles to maintain sleep schedule. Risks/Concerns:: none noted. Progress Toward Goals/Plan:: Progress noted per pt report. Increased consistent attendance in program for 2 weeks. Utilizing skills. Less distress. He still has not followed through with making appointments with counseling and psychiatry as IOP is coming to an end. Will continue to encourage. Plan is to discharge within the next 2 weeks if symptoms remain stable. Will continue in IOP to maintain gains, prevent decompensation, and to improve functioning. Time Stopped:: 09:55
--- NOTE | 2021-02-18 11:15 | BH.SGPN.GN ---
Behaviors/Verbalizations/Mental Status: []Client alert and oriented, neatly dressed and groomed. Eye contact good. Motor activity appropriate. Speech within normal limits. Affect congruent, mood euthymic and anxious. Thoughts linear, logical, no signs of hallucinations or delusions. Client Response/Progress/Benefit: []Client responded well to session, contributing to discussion and providing good feedback. Client appeared to connect with maintenance cycles and recognized how negative thinking can keep a person stuck. Client identified a negative thought that has kept client stuck. Client shared going through the program has helped client be more mindful of distorted thoughts. Client?s negative thought was ?nothing matters, so what?s the point?? Client acknowledges this thought is unrealistic and leads to shutting down, apathy, and relationship problems. Client reframed this thought to ?my loved ones matter, I matter to my loved ones.? Client shared thought challenging helps client feel less cynical and more confident. Client appeared to benefit from practicing challenging negative thinking. Will continue IOP tx to promote gains and further increase mood stability. Narrative Note: []
--- NOTE | 2021-02-20 09:00 | BH.SGPN.GN ---
Behaviors/Verbalizations/Mental Status: [] Eye contact is good. Motor activity is appropriate. Appearance is casual. Speech is Appropriate. Mood is anxious. Affect is congruent. Thoughts are linear and logical. No evidence of psychosis. Reviewed daily check in sheet and no reports of suicidal ideations or intent. Client Response/Progress/Benefit: [] Pt was an active participant in group discussion. Attentive. Provided appropriate feedback. Emotion for today is anxious but hopeful. Shared that he had a panic attacks this AM. When he has panic attack this leads to feeling off-balance which triggers health anxiety. He is working on sitting with the anxiety. Shared that he has had some very challenging days. BF picked up belonging from house and ignored the patient. Ruminated on this which impacted his sleep which impacted his mood on causing more anxiety. Insight regarding anxiety cycle and is hopeful that he can get back on track. He asked for groups' feedback on not feeling anything regarding the break-up with BF of 8 years. Group provided feedback and their experiences with this in the past which seemed helpful. Progress noted. Will continue in IOP to prevent decompensation, improve functioning, and decrease intrusive thoughts. Narrative Note: []
--- NOTE | 2021-02-20 10:12 | BH.SGPN.GN ---
Behaviors/Verbalizations/Mental Status: []Client alert and oriented, casually dressed, hygiene appeared to be tended to. Eye contact fair. Motor activity appropriate. Speech within normal limits. Affect congruent. Mood Euthymic. Thoughts linear, logical, no signs of hallucinations or delusions. Client Response/Progress/Benefit: []Client responded well to session, attentive and engaged throughout discussion and activity. Client worked with group to identify impacts of fearing failure. Assisted group with identifying how fear of failure can form which includes: past failures, family dynamics, comparing self to others, and high expectations. Client shared he has missed out on many opportuniites in life due to fearing failing. Client seemed to connect how failures can lead to positive changes. Client appeared to benefit from gaining awareness of the impact fear of failure can have on one?s mental health and wellbeing. Will continue IOP to continue use of healthy coping, reduce anxious symptoms, and prevent decompensation. Narrative Note: []
--- NOTE | 2021-02-20 11:12 | BH.SGPN.GN ---
Behaviors/Verbalizations/Mental Status: []Client alert and oriented, casually dressed and groomed. Eye contact good. Motor activity WNL. Speech within normal limits. Affect congruent, mood anxious and euthymic. Thoughts linear, logical, no signs of hallucinations or delusions. Client Response/Progress/Benefit: []Client responded well to session, engaged and actively participating throughout. Client completed the fear of failure worksheet and reported that fear of failure has kept client from real commitment in relationships, going to school, and job promotions. Client able to identify thoughts and behaviors that reinforce personal fear of failure which included: negative self-talk, mental filtering, what if thinking, and avoidance. Client attentive during discussion of the different strategies to help overcome fear of failure. Identified wanting to work on remembering past accomplishments and positive self-talk. Client appeared to benefit from learning ways to overcome fear of failure. Client?s mood has improved, and he has been self-reporting consistent use of coping skills. Will continue IOP tx to promote gains, further improve functioning, and increase self-confidence. Narrative Note: []
--- NOTE | 2021-02-23 09:00 | BH.SGPN.GN ---
Behaviors/Verbalizations/Mental Status: [] Eye contact is good. Motor activity is appropriate. Appearance is casual. Speech is Appropriate. Mood is anxious. Affect is congruent. Thoughts are linear and logical. No evidence of psychosis. Reviewed daily check in sheet and no reports of suicidal ideations or intent Client Response/Progress/Benefit: [] Pt was an active participant in group discussion. Attentive. Provided appropriate feedback. Emotion for today is happy. States that this weekend was very beneficial for him. He spent that weekend with his family and nephews which he has not seen in awhile. He had a goal to reach out to his support last week and he followed through and stepped outside his comfort zone. Very physically active over the weekend as well. Utilizing skills and noticing the benefits. Did not mentions any panic attacks or excessive intrusive health thoughts. Progress noted per pt report. Benefited from group support, encouragment, and feedback.Will continue in IOP to maintain gains, prevent decompensation, and show consistent stability. Narrative Note: []
--- NOTE | 2021-02-23 10:14 | BH.SGPN.GN ---
Behaviors/Verbalizations/Mental Status: [] Client alert and oriented, casually dressed and groomed. Eye contact good. Motor activity restless. Speech within normal limits. Affect congruent, mood euthymic and anxious. Thoughts linear, logical, no evidence of delusions or hallucinations. Client Response/Progress/Benefit: []Client engaged throughout session AEB providing input and sharing personal examples of his own experiences in crisis management. Appeared to connect with discussion on crisis and how unhealthy coping could result in a personal crisis. Gave example of how unhealthy coping led to further unhealthy choices after the loss of his mother. Group reflected on examples of what a crisis can be and the importance of having awareness of personal warning signs in order to prevent reaching crisis point. Group identified potential warning signs for crisis and client completed the personal warning signs worksheet. Client identified personal crisis warning signs to include: tie of loss of interest less enjoyment/isolate, poor self-care, and restlessness. Client reports he can tell when struggling if ?he begins to have thoughts of ?well, I could just cancel.? Or ?I don?t really want to see them anyway?. Client benefited from increasing awareness of what leads to crisis and personal warning signs. Client will continue IOP tx to prevent decompensation, continue to improve daily functioning, and increase consistent use of healthy coping skills. Narrative Note: []
--- NOTE | 2021-02-23 11:15 | BH.SGPN.GN ---
Behaviors/Verbalizations/Mental Status: []Client alert and oriented, casually dressed and groomed. Eye contact fair. Motor activity appropriate. Speech within normal limits. Affect congruent. Mood euthymic. Thoughts linear, logical, no signs of hallucinations or delusions. Client Response/Progress/Benefit: []Client responded well to session as evidenced by client listening attentively to others and providing strategies during discussion. Client identified his warning signs for crisis and gained further awareness of earliest warning signs. Client created a crisis action plan to help client better manage warning signs for crisis. Client?s action plan for poor self-care included: opposite action - making self shower, affirmations, and visual aid reminders. Client appeared to benefit from creating a crisis action plan and increasing self-awareness. Client to continue IOP tx to continue use of healthy coping, challenge distorted thoughts and prevent decompensation.
--- NOTE | 2021-02-25 10:12 | BH.SGPN.GN ---
Behaviors/Verbalizations/Mental Status: []Client alert and oriented, casually dressed, hygiene appeared to be tended to. Eye contact fair. Motor activity appropriate. Speech within normal limits. Affect congruent. Mood euthymic. Thoughts linear, logical, no signs of hallucinations or delusions. Client Response/Progress/Benefit: []Pt active participant AEB providing input throughout session and listening attentively to others. Group identified not engaging in self-care can result in increased irritability, increased stress, increased depression, increased anger, using more unhealthy coping, and larger wave of lows and highs. Pt worked with group to identify benefits of self-care which includes: improve mental health, increased confidence, increased self-esteem, increased productivity, be a good example to others and able to help others more effectively. Pt seemed to benefit from increased awareness of the benefits of self-care and common barriers to self-care. Pt to continue IOP to maintain gains, continue use of healthy coping, and prevent decompensation. Narrative Note: []
--- NOTE | 2021-02-25 10:22 | BH.MDN_ITS ---
Multi-Disciplinary Note - Note 45-min Individual Time Started:: 09:00 Date: 02/25/21 Purpose of session/treatment goals addressed:: Review progress and symptoms. Discuss discharge and aftercare. Eye Contact:: Good Motor Activity:: Appropriate Appearance:: Casual Speech:: Appropriate Mood:: Anxious Affect:: Congruent Thoughts:: Linear, Logical, No evidence of hallucinations/delusions noted Staff Interventions:: Discussed aftercare plans. Reviewed progress. Praised pt for his efforts. Client Response:: Pt reports that he followed through with reaching out to his sister last week which was a goal that he had. Spent the weekend with her and his nephews which was very beneficial. Had conversation with sister and is hopeful regarding the relationship. Shared that he is feeling very arturo today. Talked at length regarding progress and perspective change on his life and health. Not ruminating on sensations and has been utilizing skills learned in group and through intrusive thoughts handouts. States today is his 31th birthday and that he always had a repetitive thoughts that he would before he was [age]. Further evidence that his thoughts are not facts. More confident in his ability to manage setback and anxiety. No panic attacks reported last week. States I actually thought to myself if I today I'm OK with that. States less fear about and illness. Risks/Concerns:: no concerns noted Progress Toward Goals/Plan:: Progress noted per pt report. No panic attacks in over a week. Completing goals and utilizing skills consistently. Increased exercise. Continues to have intrusive thoughts however they are not impacting his functioning. Increased support. Hopeful. Increased confidence in managing emotions and stressors. We discussed discharge with plan to discharge next week. Pt will continue in aftercare program here. Plans to become active in local [facility]. Pt has appointment set for counseling at [facility] in 2 weeks. Declines psychiatry at this point and elects to have his medications managed by his PCP. Released signed and will fax over psychiatrist notes. Time Stopped:: 09:45
--- NOTE | 2021-02-25 11:12 | BH.SGPN.GN ---
Behaviors/Verbalizations/Mental Status: []Client alert and oriented, neatly dressed and groomed. Eye contact good. Motor activity appropriate. Speech within normal limits. Affect congruent, mood euthymic. Thoughts linear, logical, no signs of hallucinations or delusions. Client Response/Progress/Benefit: []Client engaged participant AEB client taking notes during discussion and listened attentively to peers. Participated in group discussion on the various areas of self-care, benefits, and types of self-care activities for each area. Client completed worksheet in which client identified current self-care practices and what self-care activities client wants to start using. Client reported wanting to continue to build upon and maintain his progress with physical self-care. Client plans to keep up with walking 5 miles daily and hopes to move this up to 6 miles next week. Client reports improving his physical health has significantly impacted his mood and confidence. Appeared to benefit from reflecting on the area of self-care client can improve and setting a small goal. Will continue IOP tx to promote gains and continue improving daily functioning. Narrative Note: []
--- NOTE | 2021-02-27 09:01 | BH.SGPN.GN ---
Behaviors/Verbalizations/Mental Status: [] Pt eye contact good, casually dressed, motor activity appropriate, speech normal rate and tone, mood euthymic, congruent affect, thoughts linear and intact, no evidence of delusions or hallucinations. Per patient symptom tracker patient denies current suicidal ideation, plan, or intent. Client Response/Progress/Benefit: []Client responded well to session as evidenced by listening attentively to others and sharing thoughts and feelings. Client identified mental positive as today being his third day in a row of being able to drive his car in 2 months. Client reported he had been having significant panic attacks while driving which led him to avoid until recently. Client identify additional months of positive as starting to let go of resentment he has had from his siblings which he now recognizes was him deflecting his own part of the problem. Client stated he was able to spend time with his sister and nephew for the first time in a while and celebrate his birthday. Client stated today is 8 days free of panic attack. 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 Client seemed to benefit from support from peers. Client to continue IOP to maintain gains, continue use of healthy coping, and prevent decompensation. Narrative Note: []
--- NOTE | 2021-02-27 10:10 | BH.SGPN.GN ---
Behaviors/Verbalizations/Mental Status: [] Eye contact is good. Motor activity is appropriate. Appearance is casual. Speech is Appropriate. Mood is anxious. Affect is congruent. Thoughts are linear and logical. No evidence of psychosis. Client Response/Progress/Benefit: [] Pt was an active participant in group discussion and activity. Pt was attentive during psychoeducation. Participated with peers in identifying benefits to effective communication which included increased clarity, healthier relationships, needs/concerns are being addressed, improved mental health, decreased confusion/distortions, and helps one reach goals. Pt identified his barrier to effective communication being that he shuts down or will just agree with others during conflict. Benefited from group by identifying barriers to effective communication and through insight an awareness. Will continue in IOP to maintain gains. Narrative Note: []
--- NOTE | 2021-02-27 11:13 | BH.SGPN.GN ---
Behaviors/Verbalizations/Mental Status: []Client alert and oriented, casually dressed and groomed. Eye contact good. Motor activity appropriate. Speech within normal limits. Affect congruent, mood euthymic and anxious. Thoughts linear, logical, no signs of hallucinations or delusions. Client Response/Progress/Benefit: []Client receptive of session, providing input and taking notes throughout. Client remained attentive and contributed during psychoeducation on the four communication styles. Client reported he is mostly a passive communicator, however, has been working to become more assertive. Cited a recent example using assertive communication with his ex. Client noted that the passive communication style had impacted him as it prevented from getting needs met, and lead to feeling as though he didn?t truly know himself. Attentive and contributing as group brainstormed strategies for improving effective communication. Benefited from increased insight regarding own communication style and impacts this has on overall mental health. Client identified personal communication goal is to begin using bullet points as a guide for going into difficult conversations. Client progressing as shown by increased mood stability and reported improved anxiety management. Will continue IOP tx to maintain gains, further improve self-esteem and prevent decompensation. Narrative Note: []
== END 2021-03-02 23:59 ==
LOC: BHIOP 08:46
PROVIDERS: Referring Provider Psychiatry & Neurology Psychiatry; Visit Provider Psychiatry & Neurology Psychiatry
DX: F45.21 Hypochondriasis (principal); Z79.899 Other long term (current) drug therapy; E66.9 Obesity, unspecified
CPT/HCPCS: 99214; H0035; H2012; H2020; 90832; 90834; 90837

== ENCOUNTER 2021-03-03 09:00 | Outpatient (RCR) | payer MEDICAID, SELFPAY ==
[2021-01-18 11:30] VITALS: BMI 46.3
[2021-03-03 00:35] VITALS: BP 135/86; PULSE 82
--- NOTE | 2021-03-03 09:00 | BH.SGPN.GN ---
Behaviors/Verbalizations/Mental Status: [] Eye contact is good. Motor activity is appropriate. Appearance is casual. Speech is Appropriate. Mood is anxious. Affect is congruent. Thoughts are linear and logical. No evidence of psychosis. Reviewed daily check in sheet and no reports of suicidal ideations or intent. Client Response/Progress/Benefit: [] Pt was an active participant in group discussion. Attentive. Appropriate feedback. Daily symptom tracker notes 12/05 for anxiety/panic. States that he has been having some rough mornings the past few days. Waking up with anxiety. Anxiety is based on somatic sensations such has hearing heartbeat which triggers health anxiety. He continues to utilize skills learned and admits that this helps decrease duration of thoughts. Has not had any panic attacks. Thought reframing such as this is a bad moment not a bad day. Mental health win was accomplishing goal of walking 100 miles for the month of January. Remains active an engaged with physical activity. Progress noted per pt report. Will continue in IOP to maintain gains. Benefited from group discussion, support, and encouragement. Narrative Note: []
--- NOTE | 2021-03-03 11:14 | BH.SGPN.GN ---
Behaviors/Verbalizations/Mental Status: []Client alert and oriented, neatly dressed and groomed. Eye contact good. Motor activity appropriate. Speech within normal limits. Affect congruent, mood euthymic. Thoughts linear, logical, no signs of hallucinations or delusions. Client Response/Progress/Benefit: []Client responded well to session, engaged and participated throughout discussion. Client participated in the discussion of how each resiliency component can help increase personal resiliency. Client worked with group to identify ways to practice each of the resiliency traits reviewed. Client shared belief client has the resiliency traits of taking decisive action and self-care. Client stated he has made healthy decisions since starting IOP such as exercising and eating healthier. Client would like to work on increasing resiliency by moving towards goals and taking decisive action to further reduce procrastination. Appeared to benefit from reflecting on already existing resiliency traits and learning how to strengthen resilience. Will continue IOP tx to promote gains, further improve daily functioning, and increase positive self-talk. Narrative Note: []
--- NOTE | 2021-03-05 10:10 | BH.SGPN.GN ---
Behaviors/Verbalizations/Mental Status: [] Eye contact is good. Motor activity is appropriate. Appearance is disheveled. Speech is Appropriate. Mood is anxious. Affect is congruent. Thoughts are linear and logical. No evidence of psychosis. Client Response/Progress/Benefit: [] Pt was an active participant in group discussion and activity. Insight during activity that finding positive aspects of a picture was more challenging than identifying negatives. Pt along with peers were able to identify what could impact one's perspective which included; upbringing, core beliefs, environment, relationships, and sleep. Group was able to identify how a negative perspective could impact progress in mental health treatment leading to beliefs such as; I will not get better, nobody understands me, apathy, withdrawing, irritability, catastrophizing, disqualifying positives, focusing on flaws, personalizing, labeling, focusing on negatives, and convincing one to quit. Pt was able to identify a perspective that has been helpful for him which was Obstacles are not mountains but small holes. Benefited from group by increasing awareness on the role of perspective in mental health wellness. Will continue in IOP to maintain gains. Narrative Note: []
--- NOTE | 2021-03-05 10:17 | BH.SGPN.GN ---
Behaviors/Verbalizations/Mental Status: []Client alert and oriented, neatly dressed and groomed. Eye contact good. Motor activity appropriate. Speech within normal limits. Affect congruent, mood euthymic. Thoughts linear, logical, no signs of hallucinations or delusions. Client Response/Progress/Benefit: []Pt engaged participant AEB pt providing input throughout session, listening attentively to peers and completing strengths exploration handout. Pt did struggle to identify strengths he has and shared ?I wouldn?t have been able to do this a month ago.? The strengths pt identified included: empathy, optimism, and emotional intelligence. Pt stated these strengths will help client?s mental health recovery by helping pt catch and challenge distortions, seeing others? perspectives, and viewing the world through a positive lens. Pt seemed to benefit from increased awareness of personal strengths and improved understanding how perspective can impact view of self. Pt is to continue IOP tx to promote use of healthy coping skills, further improve daily functioning, and combat distortions. Narrative Note: []
--- NOTE | 2021-03-05 11:54 | BH.MDN ---
Multi-Disciplinary Note - Note 45-min Individual Time Started:: 09:00 Date: 03/05/21 Purpose of session/treatment goals addressed:: Reviewed current symptoms and progress in IOP. Addressed all treatment plan goals. Eye Contact:: Good Motor Activity:: Appropriate Appearance:: Disheveled Speech:: Appropriate Mood:: Euthymic Affect:: Full Thoughts:: Linear, Logical, No evidence of hallucinations/delusions noted Staff Interventions:: Reviewed mayes mind techniques and affirmations. Praised pt for his efforts. Worked with pt to finalize d/c and aftercare. Client Response:: Pt reports that he walked 100 miles for the month of January. Reports feels healthier and has more stamina. Reports struggles this past week mainly while falling asleep and in the morning. His healthy anxiety increases at night when laying on his side. He has problemed solved ways to reduce certain sleep positions which he believes will help. Utilizing skills learned in IOP and through intrusive thoughts handouts to minimize impact of intrusive thoughts which has been helpful. Pt reports anxiety for 1-2 hours per day which is significant improvement from all day. Challenging negative thoughts and cognitive distortions. We discussed aftercare and his last day in [facility]. Last day in IOP will be next . He will join aftercare program here. He has appointment for intake at local provider. We discussed being assertive with his preferences for counselor. He wishes to work on unresolved grief and his fear of which he believes contribute to his healthy anxiety with his long-term outpatient provider. Will also attend local [facility] groups. Risks/Concerns:: none noted Progress Toward Goals/Plan:: Significant progress noted since starting IOP. Refer above for more information. Refer above for plan as well. Aftercare plan has been developed. Plan is to discharge from [facility] next week. Time Stopped:: 09:45
--- NOTE | 2021-03-10 09:00 | BH.SGPN.GN ---
Behaviors/Verbalizations/Mental Status: []Client alert and oriented, neatly dressed and groomed. Eye contact good. Motor activity appropriate. Speech within normal limits. Affect congruent, mood euthymic. Thoughts linear, logical, no signs of hallucinations or delusions. Reviewed client?s symptom tracker, no risk for suicidal ideation, plan, or intent as of 03/10/21 Client Response/Progress/Benefit: []Client responded well to session, attentive and providing coping skills to peers. Client reports feeling delighted this morning as client continues to use thought challenging, exercising, and eating healthy. Client states he has gotten much better at regulating his emotions and reports I still have rough mornings, but I can turn myself around much faster. Client discharges this week which causes anxiety, but client recognizes he has made a lot of progress. Client plans to attend IOP aftercare to promote mood stability. Appeared to benefit from connecting with peers and reflecting on growth. Will continue IOP and discharge later this week. Narrative Note: []
--- NOTE | 2021-03-10 10:05 | BH.SGPN.GN ---
Behaviors/Verbalizations/Mental Status: [] Eye contact is good. Motor activity is appropriate. Appearance is casual. Speech is Appropriate. Mood is euthymic. Affect is full. Thoughts are linear and logical. No evidence of psychosis. Client Response/Progress/Benefit: [] Pt was an active participant in group discussion and activity. Attentive during psychoeducation. Group identified the benefits of making changes or taking action on their mental wellness which included; increased confidence, healthier relationships, improved emotional health, reduction of anxiety, increased awareness, and improved recognition of triggers. Pt stated that the 3 biggest obstacles for him to taking action or making changes in his life are catastrophizing, intrusive thoughts, and what if thinking. Increased awareness of importance of taking action in mental health and obstacles that keep them from taking action. Will continue in IOP to maintain gains. Narrative Note: []
--- NOTE | 2021-03-10 11:10 | BH.SGPN.GN ---
Behaviors/Verbalizations/Mental Status: []Client alert and oriented, casually dressed and grooming fair. Eye contact good. Motor activity appropriate. Speech within normal limits. Affect congruent, mood euthymic. Thoughts linear, logical, no signs of hallucinations or delusions. Client Response/Progress/Benefit: []Client responded well to session, taking notes and participating in worksheet discussion. Client set a goal to gain control over her use of unhealthy coping skills. Client wants to be able to work on this by learning three new coping skills and practicing these skills at least 3 times a week. Client believes she will need support from therapist and a friend to accomplish this goal. Appeared to benefit from identifying a small goal to benefit mental health. Will continue IOP tx to prevent decompensation, learn healthy coping skills, and improve emotional regulation skills.
--- NOTE | 2021-03-12 09:05 | BH.SGPN.GN ---
Behaviors/Verbalizations/Mental Status: [] Eye contact is good. Motor activity is appropriate. Appearance is disheveled. Speech is Appropriate. Mood is euthymic. Affect is full. Thoughts are linear and logical. No evidence of psychosis. Reviewed daily check in sheet and no reports of suicidal ideations or intent. Client Response/Progress/Benefit: [] Pt was an active participant in group discussion. Attentive. Emotion for today is zazzed. Shared with the group that today is his last day in [facility]. Shared that he continues to have rough mornings primarily when he wakes up. He is fearful that he will no longer have the support of [facility] and identified some automatic thoughts last night that the only reason I'm doing well is b/c of IOP which he quickly challenged stating that he has only been here for 9 hours a week and he has managed by himself for the rest of the hours a week. He summarized his progress in [facility] and identified the education he received on intrusive thoughts and cognitive distortions as being the most beneficial. Progress noted. Benefited from group support an encouragement. Will be discharged from [facility] today. Narrative Note: []
--- NOTE | 2021-03-12 11:15 | BH.SGPN.GN ---
Behaviors/Verbalizations/Mental Status: []Client alert and oriented, casual dress, hygiene appropriate. Eye contact good. Motor activity appropriate, at times. speech and tone WNL. Affect congruent. mood euthymic. Thoughts linear, logical, no signs of hallucinations or delusions. Client Response/Progress/Benefit: []Client engaged in session AEB listening to discussion and provided input at times. Client attentive during psychoeducation about importance of maintenance plans. Client did well to work with the group to brainstorm strategies to promote making progress towards their desired chapter. Pt completed provided maintenance plan worksheet in small group. Pt identified personal triggers as: toxic relationships, negative people, intrusive thoughts and medical shows.Identified warning signs as: hard time getting to sleep, googling physical symptoms, isolating and playing too many video games. Pt identified healthy coping skills as: affirmations, exercise, and thought challenging. Seemed to benefit from increasing awareness of triggers, warning signs and coping skills. Pt has made significant treatment progress since starting IOP and will discharge from IOP today. Narrative Note: []
--- NOTE | 2021-03-12 12:34 | BH.DS_ITS ---
Discharge Summary - Demographics Date of Admission:: 01/12/21 Discharge Date: 03/12/21 Presenting Problems at Admission:: Pt is a 31 year old male with hx of MARIO and Panic Disorder. Previous psychiatric admission in 2010 due to psychotic break after his mother's . Pt was referred to [facility] by [facility] Crisis team. Pt called crisis line on 01/05/21 due to significant anxiety and panic. Increasing panic attacks for the past 2 weeks which are impacting functioning. Pt reports up to 5 panic attacks daily which are mostly occurring at night. 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 Intrusive thoughts regarding his health which have led to ER visits. Fearful that he is going to . Reports in 11/2020 he believed he had a heart attack and since then he reports sensations and fear. Compulsive checking behaviors (BP and HR) as well as researching symptoms online. Has been evaluated medically and was placed on heart monitor with no concerns per pt. Endorses poor sleep, poor appetite, low energy, low motivation, hopelessness, worthlessness, isolation, and no pleasure in activities. Denies active suicidal ideations, plan, or intent. No hx of attempts. Stopped cannabis 6 months ago. Was using to self-medicate for anxiety. Hx of Adderall abuse, however sober for 3 years. Presented to ER and has called crisis twice since 01/01/21. Medication compliant. Family hx of depression. Limited support. Denies HI or psychosis. Discharge Diagnoses:: Illness Anxiety Disorder, Panic Disorder Reason for Discharge:: Completed goals. No longer meets criteria of [facility] level of care. - Treatment Progress During Treatment & Response: Pt made significant progress while in [facility] level of care. Per DSM outcomes pt had a 63% reduction in overall symptoms since admission. Pt's anxiety scores decreased 75%, Somatic sensations and ruminations decreased 87% and Depression decreased 67%. Pt met all treatment plan goals. Improved functioning. Able to identify triggers to depression and anxiety and has used coping skills consistently to minimize impact on functioning. t reports significant improvement since starting [facility]. Exercising daily, compliant with medications, decreased anxiety, decreased depression, and improved outlook on the future. Increased self-confidence. Continues to report anxiety in the AM with somatic sensations however reports anxiety and sensations are usually gone within 30 minutes. Improved relationship with his father and sister. While in [facility] his relationship of 8 years ended and he was able to manage grief. Issues Still to be Addressed:: Anxiety, Panic attacks, intrusive thoughts, grief (mother), Discharge Recommendations/Instructions:: Pt has intake appointment at [facility] on 03/23/21 for counseling services. Plan to start aftercare group here at [facility] on 03/19/21. He elected to have his PCP manage his psych medications. Psychiatrist notes faxed to Mery Pugh. Discharge Handout: Complete Discharge Handout with client on aftercare options and continuity of care.
--- NOTE | 2021-03-12 12:35 | BH.MDN_ITS ---
Multi-Disciplinary Note - Note 30-min Individual Time Started:: 10:30 Date: 03/12/21 Purpose of session/treatment goals addressed:: Review progress, outcomes measurements, and aftercare. Eye Contact:: Good Motor Activity:: Appropriate Appearance:: Disheveled Speech:: Appropriate Mood:: Euthymic Affect:: Full Thoughts:: Linear, Logical, No evidence of hallucinations/delusions noted Staff Interventions:: Reviewed progress and discussed aftercare plan to maintain stability. Client Response:: Pt reports significant improvement since starting IOP. Exercising daily, compliant with medications, decreased anxiety, decreased depre ssion, and improved outlook on the future. Increased self-confidence. Continues to report anxiety in the AM with somatic sensations however reports anxiety and sensations are usually gone within 30 minutes. Improved relationship with his father and sister. While in IOP his relationship of 8 years ended and he was able to manage grief. He reports that he will continue with outpatient counseling to work on his fear of and intrusive thoughts. Risks/Concerns:: No risks or concerns noted. Progress Toward Goals/Plan:: Pt made significant progress while in [facility] level of care. Per DSM outcomes pt had a 63% reduction in overall symptoms since admission. Pt's anxiety scores decreased 75%, Somatic sensations and ruminations decreased 87% and Depression decreased 67%. Pt met all treatment plan goals. Able to identify triggers to depression and anxiety and has used coping skills consistently to minimize impact on functioning. Plan is to continue with outpatient counseling and will begin aftercare program here at [facility]. Pt also has plans to participate in [facility]. Pt met all goals and not longer meets criteria for [facility] level of care. Time Stopped:: 11:00
== END 2021-03-12 13:16 | disposition home or self-care (01) ==
LOC: BHIOP 09:00
PROVIDERS: Referring Provider Psychiatry & Neurology Psychiatry; Visit Provider Psychiatry & Neurology Psychiatry
DX: F41.9 Anxiety disorder, unspecified (principal); F41.0 Panic disorder [episodic paroxysmal anxiety]
CPT/HCPCS: H2012; H2020; S9480; 90832; 90834

== ENCOUNTER 2021-03-19 14:00 | Outpatient (RCR) | payer MEDICAID, SELFPAY ==
[2021-01-18 11:30] VITALS: BMI 46.3
--- NOTE | 2021-03-19 14:00 | BH.SGPN.GN ---
=Behaviors/Verbalizations/Mental Status: []Client alert and oriented, casually dressed. Eye contact good. Motor activity appropriate. Speech within normal limits. Affect congruent, mood euthymic. Thoughts linear, logical, no signs of hallucinations or delusions. Client Response/Progress/Benefit: []Pt responded well to session AEB pt providing input during discussion and listening attentively to peers. Pt reported mental health positive as putting in job applications into work environments that he believes will be healthy for him. Pt stated additional positives as exercising and managing anxiety in the moment when his heart was racing. Pt engaged in discussion about self-love. Pt worked with group to identify strategies to increase self-love. Pt reported he wants to work on self-love by engaging in activities that he believes will be fun. Pt seemed to benefit from reviewing treatment progress and stressors as well as learning about how to increase self-love. Pt to continue aftercare program to maintain treatment progress, continue use of healthy coping, and prevent decompensation.
--- NOTE | 2021-03-19 14:22 | BH.MTP_ITS ---
Master Treatment Plan - Patient Information Program Physician:: Dr. Ronna Mercer Primary Therapist:: Jerald Novak [facility] - Psychiatric Diagnoses Psychiatric Diagnoses:: Illness Anxiety Disorder, Panic Disorder Diagnosis Code(s):: F 45.21 - Estimated LOS Estimated LOS (in weeks):: 12 Problem/Goal #1 - Problem/Goal #1 Stated Goal:: client will maintain or see a reduction in symptoms AEB client score on the DSM 5 cross-cutting measure and improve client's daily functioning. - Objectives Objective #1 Stated Objective: Client will continue to consistently apply healthy coping skills to maintain progress made in IOP tx. Interventions: Through group therapy, client will review warning signs and triggers as well as healthy coping skills learned in IOP tx to successfully maintain gains while transitioning into outpatient therapy. Discharge Criteria: Client will have accomplished this goal when client's score on the DSM-5 cross-cutting measure has either maintained or reduced over a 12 week period. Target Date: 06/11/21 Review Date: 04/16/21 Status: open Objective #2 Stated Objective: Client will learn and utilize 2-3 maintenance strategies to prevent decompensation. Interventions: Through group therapy, client will be provided with education on healthy maintenance behaviors, relapse prevention techniques, and healthy coping strategies. Discharge Criteria: Client will have accomplished this goal when can report using at least 2 maintenance skills to prevent decompensation. Target Date: 06/11/21 Review Date: 04/16/21 Status: open
--- NOTE | 2021-03-26 14:00 | BH.SGPN.GN ---
Behaviors/Verbalizations/Mental Status: []Client alert and oriented, neatly dressed and groomed. Eye contact good. Motor activity appropriate. Speech within normal limits. Affect congruent, mood anxious. Thoughts linear, logical, no signs of hallucinations or delusions. Client Response/Progress/Benefit: []Client responded well to session, client?s emotion today is ?hopeful? as client recently had a setback with intrusive thoughts regarding his health, but client was able to use his coping skills. Client shared he used walking and his ?mayes mind? to manage the anxious, intrusive thoughts. Client is also working on small exposure goals to reduce client?s fear of talking about health and . Receptive of discussion on self-talk and its influence in maintaining long-term mental health stability. Contributed to strategies for improving effective creation and application of believable personal affirmations. Client created several affirmations and shared one with the group. Client plans to put ?I am worthy of a good future? near his computer. Client reports this will motivate client to keep challenging himself. Client to continue aftercare group to promote gains and further increase application of healthy coping skills. Narrative Note: []
== END 2021-04-01 23:59 ==
LOC: BHOG 14:00
PROVIDERS: Referring Provider Psychiatry & Neurology Psychiatry; Visit Provider Psychiatry & Neurology Psychiatry
DX: F45.21 Hypochondriasis (principal)
CPT/HCPCS: 90853

== ENCOUNTER 2021-04-02 09:00 | Outpatient (RCR) | payer MEDICAID, SELFPAY ==
[2021-01-18 11:30] VITALS: BMI 46.3
--- NOTE | 2021-04-02 14:00 | BH.SGPN.GN ---
Behaviors/Verbalizations/Mental Status: [] Client alert and oriented, casually dressed and groomed. Eye contact good. Motor activity appropriate. Speech within normal limits. Affect congruent, mood anxious, euthymic. Thoughts linear, logical, no signs of hallucinations or delusions. Client Response/Progress/Benefit: [] Client receptive of session as evidenced by remaining attentive, taking notes and providing input throughout discussion. Client reflected on going progress and stated he is feeling on edge as he has been working with his outpatient therapist to improve overall ability to ?sit with anxious feelings? rather than try to numb them. Shared this is outside his comfort zone but was able to identify this as progress in overall mood stability. Client identified what skills have been aiding in improving his ability to do so, which included thought challenging, grounding, and using the WiseMind technique. Client appeared to connect well with group discussion on the importance of self-reflection and the associated mental health benefits. Worked with group to review barriers to consistent personal reflection and strategies for better incorporating self-reflection into daily life. Client plans to incorporate more intentional time for ?play? in his daily life. Expressed this will help to reduce overall anxiety and ensure he is taking time to engage in activities he enjoys. Client recommended continued participation in Aftercare program to further support ongoing mood stability and maintain gains made. Narrative Note: []
--- NOTE | 2021-04-09 14:00 | BH.SGPN.GN ---
Behaviors/Verbalizations/Mental Status: []Client alert and oriented, casual dress, hygiene tended to. Eye contact good. Motor activity appropriate. Speech within normal limits. Affect congruent, mood anxious. Thoughts linear, logical, no signs of hallucinations or delusions. Client Response/Progress/Benefit: []Client responded well to session, receptive to feedback and sharing supportive statements to peers. Client reported he has been having more ups and downs lately. Client stated his sleep is becoming a struggle due to increased racing and intrusive thoughts at night. Client reported not getting enough sleep is increasing his anxiety throughout day. 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 Client participated in the group discussion of maintenance and the benefits of creating a maintenance plan. Client contributed as the group discussed what components make up a maintenance plan. Client created own mental health maintenance plan. Client identified warning signs which included: bad sleep schedule, not reaching out to supports, researching physical pain, and unhealthy distractions. Client's coping skills included: breathing skills, going to the gym, and reaching out to supports. Appeared to benefit from creating a maintenance plan to promote gains and prevent setbacks. Will continue aftercare next week. Narrative Note: []
--- NOTE | 2021-04-16 14:00 | BH.SGPN.GN ---
Behaviors/Verbalizations/Mental Status: []Client alert and oriented, casual appearance. Eye contact fair. Motor activity appropriate. Speech within normal limits. Affect constricted, mood dysthymic and anxious. Thoughts linear, logical, no signs of hallucinations or delusions. Client Response/Progress/Benefit: []Pt responded well to session AEB pt openly sharing thoughts and feelings and completing worksheet. Pt reported he has been more on edge lately and more anxious. Pt stated he has been struggling with getting sleep which he reported increases his anxiety during the day. Pt reported he is having racing and intrusive thoughts at night. Pt stated he had a panic attack earlier this week but was able to use his healthy skills to manage his anxiety. Pt responded well to group discussion and review about self-care. Pt stated he will work on following self-care activities: creative writing, go to a garden, affirmations, therapy, turn off electronics for a little, take a drive, and make plans with friends/family. Pt seemed to benefit from support from peers and identifying self-care plan. Pt to continue aftercare to prevent decompensation, continue use of healthy coping, and challenge distorted thoughts. Narrative Note: []
--- NOTE | 2021-04-21 14:25 | BH.MTP_ITS ---
Treatment Plan Review Date of Admission:: 03/19/21 Date of Treatment Plan Review:: 04/16/21 Admitting Diagnoses:: Illness Anxiety Disorder F 45.21, Panic Disorder Current Diagnoses:: Illness Anxiety Disorder F 45.21, Panic Disorder Patient's Response to Treatment:: Pt responding well to treatment AEB pt consistently attending sessions, actively engaged in group discussions, and reporting use of skills outside treatment environment. Status of Current Problems and Symptoms: Pt reported within the last month he found out that his sister has some health issues which triggered pt's illness anxiety. Pt has been reporting more intrusive thoughts and checking behaviors since finding out about his sister, but he is doing well with not letting his anxiety control him. Pt reports he has been walking daily, using mayes mind, and practicing sitting with the uncomfortable which has been helping prevent panic attacks. Problem #1 Problem Name:: Pt will maintain or see a reduction in sx AEB client score on the DSM-5 Status of Goals:: Objective 1- partially complete, ongoing work encouraged. Pt's scores on the DSM-5 for depression have maintained since IOP discharge. Pt anxiety scores have increased from IOP discharge by one point, but they still remain in the mild range. Pt has been doing well to use calming skills and self- talk when feeling anxious. Objective 2- complete with ongoing work encouraged. Pt identified coping skills such thought challenging, grounding, exercising, and using the WiseMind technique. Team Recommendations:: Recommended pt continue IOP aftercare group in addition to attending regular outpatient counseling in order to maintain gains.
--- NOTE | 2021-04-23 14:00 | BH.SGPN.GN ---
Behaviors/Verbalizations/Mental Status: []Client alert and oriented, neat and casually dressed and groomed. Eye contact good. Motor activity appropriate. Speech within normal limits. Affect congruent, mood dysthymic, anxious. Thoughts linear, logical, no signs of hallucinations or delusions. Client Response/Progress/Benefit: []Client responded well to session, provided input, and listened attentively to peers. Reported feeling ?discombobulated? today as client has been working on taking the next steps in working through client?s anxiety with his outpatient therapist. Noted this is a positive but also a stressor. Shared he has been practicing sitting with the uncomfortable, small exposure steps, thought challenging, and exercise. Identified a current stressor as his sister?s upcoming surgery as she does not have a very positive prognosis. Did well to identify skills he can use and has expressed working with his therapist to address health anxiety associated with visiting his sister in her current physical state. Client engaged in discussion on self-advocacy. Worked with group to identify the benefits of self-advocacy, as well as common barriers. Reviewed the personal bill of rights and shared belief that he has the right to ?follow my own values and standards?. Worked with group to identify strategies to increase ability to advocate for oneself. Reported he wants to work on advocating for himself by reminding himself that he has the right to ?make friends and be comfortable around people?. Noted plans to take steps in practicing this by going to one of the groups at [facility]. Client seemed to benefit from reviewing treatment progress and skill application, as well as learning about how to increase self-advocacy. Client to continue aftercare to promote gains, prevent regression, and further improve functioning. Narrative Note: []
--- NOTE | 2021-04-30 14:00 | BH.SGPN.GN ---
Behaviors/Verbalizations/Mental Status: []Eye contact is avoidant. Motor activity is appropriate. Appearance is casual. Speech is Appropriate. Mood is depressed and anxious. Affect is flat. Thoughts are linear and logical. No evidence of psychosis. Client Response/Progress/Benefit: []Client responded well to session, client reports feeling ?melancholy? today. Client stated he had a recent medication change and has been feeling low energy. Client?s biggest stressor is his sister?s health. Client continues to use calming skills and self-talk to manage anxiety and he was receptive to encouragement from peers. Client engaged well during the discussion of the components of self-compassion. Client connected with the benefits of self-compassion and participated in the activity of reframing a recent setback using self-compassion. Client used recent feelings of guilt and shame about not visiting his sister as often as he ?should.? Client reminded himself that his sister knows he loves her and he is allowed to practice self-care. Client appeared to benefit from practicing self-compassion and connecting with peers. Will continue aftercare to promote mood stability and reinforce healthy coping skills. Narrative Note: []
== END 2021-05-02 23:59 ==
LOC: BHOG 09:00
PROVIDERS: Referring Provider Psychiatry & Neurology Psychiatry; Visit Provider Psychiatry & Neurology Psychiatry
DX: F41.9 Anxiety disorder, unspecified (principal); F41.0 Panic disorder [episodic paroxysmal anxiety]
CPT/HCPCS: 90853

== ENCOUNTER 2021-05-07 10:22 | Outpatient (RCR) | payer MEDICAID, SELFPAY ==
[2021-01-18 11:30] VITALS: BMI 46.3
--- NOTE | 2021-05-07 14:00 | BH.SGPN.GN ---
Behaviors/Verbalizations/Mental Status: []Client alert and oriented, casually dressed and groomed. Eye contact good. Motor activity appropriate. Speech within normal limits. Affect congruent. Mood anxious and euthymic. Thoughts linear, logical, no signs of hallucinations or delusions. Client Response/Progress/Benefit: [] Client responded well to session AEB sharing thoughts and feelings and listening attentively to peers. Client reported he is felling ?optimistic today and discussed this is related to overcoming a major potential setback this week. Explained that he had looked up the warnings/side effects of one of his medications which triggered his health anxiety and resulted in discontinuing the medication himself. Client noted however recognizing this as self-sabotage and altered his behaviors by reaching out to his outpatient counselor and using opposite action to continue taking the medication instead. Able to see this as a major personal win as client would usually decompensate into panic for several days following looking up a medication. Continues to make progress in addressing and better managing anxiety. Client contributed to the discussion on gratitude and its benefits. Client attentive during discussion of internal vs. external gratitude. Client created weekly plan on how he will practice gratitude over the next 7 days. Appeared to benefit from connecting with peers and creating plan to identify gratitude. Pt plan included: reflect on a lesson learned from a past setback, show gratitude towards his father, positive affirmations, and give self credit for his own personal strengths/talents. Will continue IOP aftercare to continue use of healthy coping skills, challenge distorted thoughts and maintain gains made. Narrative Note: []
--- NOTE | 2021-05-14 14:23 | BH.TPR ---
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 Status of Current Problems and Symptoms: At pt's last review, he was experiencing increased anxiety and intrusive thoughts. Pt has reverted back to using safety behaviors and reported more compulsions. Pt now reports reduced intrusive thoughts and compulsions. Pt's DSM-5 scores for OCD have decreased by 80% since last review. Pt has been going to [facility] for additional peer support and he hopes to become a peer support person. Problem #1 Problem Name:: Pt will maintain or see a reduction in sx AEB client score on the DSM-5 Status of Goals:: Objective 1- partially complete, ongoing work encouraged. Pt's scores on the DSM-5 for depression and general anxiety have increased slightly since pt's first review. Pt's symptoms of OCD have decreased by 80% since his first review. Pt's overall DSM-5 scores have decreased by 19% since pt's first review. Objective 2- complete with ongoing work encouraged. Pt identified coping skills such thought challenging, grounding, reaching out to support, exercising, and using the WiseMind technique. Team Recommendations:: Recommended pt continue IOP aftercare group in addition to attending regular outpatient counseling in order to maintain gains. Pt will also continue going to [facility] for additional support and structure.
--- NOTE | 2021-05-21 14:00 | BH.SGPN.GN ---
Behaviors/Verbalizations/Mental Status: []Client alert and oriented, casually dressed and groomed. Eye contact good. Motor activity appropriate. Speech within normal limits. Affect congruent. Mood euthymic. Thoughts linear, logical, no signs of hallucinations or delusions. Client Response/Progress/Benefit: []Client responded well to session AEB sharing thoughts and feelings and listening attentively to peers. Client reported feeling ?stupendous today as he has continued to make significant strides in better managing his anxiety and practicing improved self-care. Shared an example of challenging his anxious ?inner voice? by vocalizing reasons why his thoughts are irrational. Noted ?It helped to ?put the bully in his place??. Fellow participants appeared to related to benefits of vocalizing reframing thoughts. Benefited from reflecting on areas in which he continues to progress, as well as encouragement provided by the group as well. Client contributed to the discussion on mindfulness and it?s mental, physical, and interpersonal benefits. Client attentive during discussion reviewing and demonstrating various mindfulness practices. Created weekly plan on how client will practice mindfulness over the next 7 days. Appeared to benefit from connecting with peers and creating plan to improve ability to be present. Pt plan included: spending time in nature, slowing down when completing tasks, writing/journaling, listening to music mindfully, smiling, and reflecting on positive memories with supports. Will continue IOP aftercare to continue use of healthy coping skills, challenge distorted thoughts and maintain gains made. Narrative Note: []
--- NOTE | 2021-05-28 14:00 | BH.SGPN.GN ---
Behaviors/Verbalizations/Mental Status: []Client alert and oriented, casually dressed and groomed. Eye contact good. Motor activity appropriate. Speech within normal limits. Affect constricted, mood dysthymic. Thoughts linear, logical, no signs of hallucinations or delusions. Client Response/Progress/Benefit: []Pt responded well to session, attentive and taking notes. Pt reports feeling ?melancholy? today as pt has several family stressors, but pt feels he is managing his negative thinking well. Pt continues to use thought challenging and grounding. Pt worked cooperatively with group to identify benefits of having a daily routine which included: sense of accomplishment, increased motivation, and mental health maintenance. Pt engaged in brainstorming of various daily routine ideas. Pt completed task of creating a daily routine focusing on connecting with others and walking and identified a supportive mantra. Pt shared a copy of his routine and identified his mantra as ?my thoughts do not control me. I control my thoughts.? Pt seemed to benefit from support from peers and learning about benefits of routine. Pt to continue aftercare group to improve consistent use of healthy coping, maintain gains, and prevent decompensation. Narrative Note: []
== END 2021-06-02 23:59 ==
LOC: BHOG 10:22
PROVIDERS: Referring Provider Psychiatry & Neurology Psychiatry; Visit Provider Psychiatry & Neurology Psychiatry
DX: F41.9 Anxiety disorder, unspecified (principal); F41.0 Panic disorder [episodic paroxysmal anxiety]
CPT/HCPCS: 90853

== ENCOUNTER 2021-06-04 09:58 | Outpatient (RCR) | payer MEDICAID, SELFPAY ==
[2021-06-03 00:36] VITALS: BMI 46.3
--- NOTE | 2021-06-04 14:00 | BH.SGPN.GN ---
Behaviors/Verbalizations/Mental Status: []Client alert and oriented, casually dressed and groomed. Eye contact good. Motor activity appropriate. Speech within normal limits. Affect congruent, mood euthymic and positive. Thoughts linear, logical, no signs of hallucinations or delusions. Client Response/Progress/Benefit: []Pt responded well to session AEB pt contributing during discussion and listening attentively to others. Pt stated he has been having a flare up of panic this week. Pt reported he attributes increased anxiety to diving deeper in individual counseling. Pt stated mental health positive as continuing to not have any medical anxiety. Pt stated he is feeling hopeful that he will be able to get through the recent bout of increased anxiety. Pt engaged in discussion about healthy decision making. Pt stated wanting to work on making healthy decisions with physical and mental health. Pt reported he will work on this by getting back to walking 10,000 steps every day. Pt seemed to benefit from identifying healthy choices he can make in at least one area of her life. pt to continue aftercare to maintain gains and prevent decompensation. Narrative Note: []
--- NOTE | 2021-06-11 14:00 | BH.SGPN.GN ---
Behaviors/Verbalizations/Mental Status: []Client alert and oriented, casually dressed and appropriately groomed. Eye contact good. Motor activity appropriate. Speech within normal limits. Affect congruent, mood euthymic, slightly sad. Thoughts linear, logical, no signs of hallucinations or delusions. Client Response/Progress/Benefit: []Pt receptive of session, engaged throughout. Pt reported accomplished goal from last week of walking one mile everyday. Pt identified mental health positive as continuing to go to individual therapy that has been helping him work through his past trauma. Pt shared feeling sad that today is his last day in aftercare but recognizes he has made significant progress throughout his treatment. Receptive of discussion on personal accountability and its importance in maintaining mental health stability. Pt worked cooperatively with group to identify benefits of maintaining personal accountability. Engaged in brainstorming strategies for improving ability to hold themselves accountable. Pt identified that for homework he will attend the creative writing group at [email or web address] [place] for group accountability. Pt seemed to benefit from support from peers and increasing understanding of personal accountability benefits and strategies. Pt is to discharge from aftercare today. Narrative Note: []
--- NOTE | 2021-06-11 16:19 | BH.DS ---
Discharge Summary - Demographics Date of Admission:: 03/19/21 Discharge Date: 06/11/21 Presenting Problems at Admission:: Client discharged from IOP tx and transitioned to IOP aftercare to maintain gains client made in IOP and to reinforce healthy coping skills. At admission to IOP aftercare, client reported experiencing reduced but ongoing symptoms of anxiety. Client was also experiencing life stressors such as family medical stressors which began to reinforce client illness anxiety, as well as the recent end of his relationship. Despite these stressors, client reported ability to cope with his mental health and was activity using healthy skills. Client also was consistently attending weekly outpatient counseling. Discharge Diagnoses:: Illness Anxiety Disorder, Panic Disorder Reason for Discharge:: Client has accomplished tx goals AEB ability to maintain mood stability and gains made in IOP despite several psychosocial stressors. Client will transition to traditional outpatient counseling. - Treatment Progress During Treatment & Response: Client was engaged in IOP aftercare as evidenced by client's participation in group discussions and self-report of consistently applying coping skills. Client's DSM-5 scores have increased by 19% from end of IOP to end of aftercare; however, client saw a 52% increase at time of 4 week review due to increased familial stressors and has since reduced his scores by 28%. Client has additionally successfully refrained from crisis escalation throughout aftercare which is progress compared to client coping hx. Intrusive thinking has reduced by 100% since admission. At discharge, client reported more positive thinking patterns, consistent use of healthy coping skills, consistent use of self-care, and better thought challenging skills. Issues Still to be Addressed:: Client can benefit from ongoing outpatient counseling and medication management to promote gains and reinforce healthy coping skills. Client can continue to work on reaching out to support, thought challenging, boundary setting, self-compassion, and self-care. Discharge Recommendations/Instructions:: Client is encouraged to follow up with the outpatient counselor. Client will continue to see his PCP for medication management. Discharge Handout: Complete Discharge Handout with client on aftercare options and continuity of care.
== END 2021-06-12 08:15 | disposition home or self-care (01) ==
LOC: BHOG 09:58
PROVIDERS: Referring Provider Psychiatry & Neurology Psychiatry; Visit Provider Psychiatry & Neurology Psychiatry
DX: F41.9 Anxiety disorder, unspecified (principal); F41.0 Panic disorder [episodic paroxysmal anxiety]
CPT/HCPCS: 90853

== ENCOUNTER 2022-03-16 12:49 | Outpatient (RCR) | payer MEDICAID, SELFPAY | END 2022-04-01 23:59 | LOC: NS 12:49 | PROVIDERS: Visit Provider Nurse Practitioner Adult Health | DX: Z71.3 Dietary counseling and surveillance (principal); E66.01 Morbid (severe) obesity due to excess calories; Z68.43 Body mass index [BMI] 50.0-59.9, adult | CPT/HCPCS: 97802 ==

== ENCOUNTER 2022-04-20 15:00 | Outpatient (RCR) | payer MEDICAID, SELFPAY | END 2022-04-20 23:59 | disposition home or self-care (01) | LOC: NS 15:00 | PROVIDERS: Referring Provider Nurse Practitioner Adult Health; Visit Provider Nurse Practitioner Adult Health | DX: Z71.3 Dietary counseling and surveillance (principal); E66.01 Morbid (severe) obesity due to excess calories; Z68.43 Body mass index [BMI] 50.0-59.9, adult | CPT/HCPCS: 97802; 97803 ==

== ENCOUNTER 2024-11-09 23:00 | Emergency (ER) | payer MEDICAID, SELFPAY ==
[2024-11-09 23:02] VITALS: BP 154/90; PULSE 95; RESP 20; TEMP 36.6; O2SAT 97; BMI 46.9
[2024-11-09 23:17] VITALS: BP 164/89; PULSE 89; RESP 20; TEMP 36.6; O2SAT 96; O2SAT 98
[2024-11-09] MEDS: Benzonatate 100 MG Capsule 200 MG PO (23:42)
--- NOTE | 2024-11-09 23:44 | RAD_ITS ---
PROCEDURE: PA and lateral chest radiographs, two views REASON FOR EXAM: Cough TECHNIQUE: PA and lateral chest radiographs were obtained. COMPARISON: 01/18/2021 FINDINGS: The cardiomediastinal silhouette is stable. No pneumothorax, focal airspace consolidation, or pleural effusion. Mild degenerative changes in the spine. The superior retrosternal airspace is obscured by the patient's arms on the lateral projection. RAD/Chest PA and Lateral IMPRESSION: No acute cardiopulmonary process is demonstrated. If there are persistent symp toms or clinical concern, short-term follow-up CT evaluation may be considered. Reading Location: [facility]
[2024-11-09] MEDS: Ipratropium/Albuterol Sulfate 3 ML AMPUL.NEB INHALATION (23:56)
[2024-11-09 23:57] VITALS: PULSE 96; RESP 18
--- NOTE | 2024-11-10 00:42 | EX.ED.DYSGE1 ---
HPI History of Present Illness Chief Complaint: Shortness of Breath Informant: patient Narrative Narrative: Patient is a 34-year-old male with reported past medical history of asthma as well as anxiety and depression. He states for the past 3 weeks he has had congestion drainage and cough. He states that initially it was on his head and then began to track down towards his lungs. He states he was seen at an urgent care where he was given an inhaler and placed on 5 days of prednisone. He states that despite using this there has been minimal symptom improvement and therefore he presents for evaluation [facility] Medical History (Updated 11/10/24 @ 01:[address] Phoenix Leroy, DO) Cannabis use disorder, mild, in early remission Adderall use disorder, mild, in sustained remission Major depressive disorder, recurrent, moderate Illness anxiety disorder Panic disorder Home Medications ?Medication ?Instructions ?Recorded ?Last Taken ?Type albuterol sulfate 90 mcg/actuation 1 puff inhalation Q4H PRN PRN 12/08/15 Unknown History aerosol inhaler (ProAir HFA) Shortness Of Breath buspirone 5 mg tablet 10 mg PO BID 01/14/21 Unknown History hydroxyzine pamoate 25 mg capsule 25 mg PO TID PRN PRN Anxiety 01/14/21 Unknown History metoprolol tartrate 25 mg tablet 25 mg PO BID 01/14/21 Unknown History lorazepam 1 mg tablet 1 mg PO TID PRN Anxiety #10 TABLETS 01/18/21 Unknown Rx quetiapine 25 mg tablet (Seroquel) 25 mg PO BREAKFAST 01/28/21 Unknown History quetiapine 25 mg tablet (Seroquel) 50 mg PO QHS 01/28/21 Unknown History amitriptyline 25 mg tablet 50 mg PO QHS 03/25/21 Unknown History azithromycin 250 mg tablet See Rx Instructions PO .COMPLEX #6 11/10/24 Unknown Rx (Zithromax Z-[place]) tabs benzonatate 200 mg capsule 200 mg PO TID PRN cough #30 caps 11/10/24 Unknown Rx ipratropium 0.5 mg-albuterol 3 mg 3 ml inhalation 4X/DAY PRN 11/10/24 Unknown Rx (2.5 mg base)/3 mL nebulization Shortness of breath/wheeze #180 mL soln nebulizer and compressor #1 ea 11/10/24 Unknown Rx Allergy/AdvReac Type Severity Reaction Status Date / Time peanut Allergy Anaphylaxis Verified 11/09/24 23:04 egg AdvReac Nausea/Vom/ Verified 11/09/24 23:04 Diarrhea Surgical History History of cholecystectomy Social History (Updated 11/09/24 @ 23:21 by Palak Blount) household members: family housing: apartment Smoking Status: Current every day smoker tobacco type: cigarettes ROS ROS ED Constitutional Constitutional ED: Denies chills or fever(s) ENT ENT ED: Reports rhinorrhea and sore throat Cardiovascular Cardiovascular: Denies chest pain Respiratory/Chest Respiratory/Chest: Reports cough and dyspnea Gastrointestinal Gastrointestinal: Denies abdominal pain, diarrhea, nausea or vomiting Genitourinary Genitourinary ED: Denies dysuria Musculoskeletal Musculoskeletal: Denies myalgias Integumentary Denies rash Neurologic Neurologic: Denies headache(s) Psychiatric Psychiatric: Reports anxiety and depression Hematologic/Lymphatic Hematologic/Lymphatic: Denies easy bleeding or easy bruising Allergic/Immunologic Allergic/Immunologic ED: Denies mouth swelling or tongue swelling EXAM Physical Exam Const Vital Signs: 11/09/24 23:02 11/09/24 23:17 11/09/24 23:17 Temperature 97.8 F 97.9 F Temperature Source Oral Oral Pulse Rate 95 89 Respiratory Rate 20 H 20 H Respiratory Effort Normal Non-Labored Respiratory Depth Normal Respiratory Pattern Normal Blood Pressure 154/90 H 164/89 H Blood Pressure Mean 111 114 Pulse Ox 97 98 Oxygen Delivery Method Room Air Room Air 11/09/24 23:57 11/10/24 00:46 Temperature 97.9 F Temperature Source Pulse Rate 96 96 Respiratory Rate 18 18 Respiratory Effort Respiratory Depth Respiratory Pattern Normal Blood Pressure 164/89 H Blood Pressure Mean 114 Pulse Ox 98 Oxygen Delivery Method Positive well nourished, well developed and obese General Appearance ED: well developed; Negative for pallor Nutritional Appearance: obese HEENT HEENT Narrative: Nasal mucosa is hyperemic and boggy There is cobblestoning in the posterior pharynx consistent with sinus drainage without airway edema or compromise; no secondary findings to suggest infection Eyes PERRL and EOMs intact bilaterally General Eye ED: Negative for scleral icterus Neck supple Neck Narrative: No nuchal rigidity or meningeal signs Chest Wall palpation of chest normal Resp normal respiratory effort Resp Narrative: Breath sounds are diminished throughout with diffuse expiratory wheeze however no nasal flaring retractions tachypnea or accessory muscle use Cardio regular rate and regular rhythm Extremity normal to inspection Extremity Narrative: No asymmetric edema no pitting edema negative Homans' sign bilaterally Neuro oriented x3, CN's II-XII intact bilaterally and no sensory deficits noted Sensorium / Orientation: alert Motor Exam: strength 5/5 throughout Psych mental status grossly normal Skin no rashes or lesions noted and no wounds General Skin Exam: Negative for jaundice or pallor MDM MDM MDM Narrative Medical decision making narrative: Patient arrived to the ER hypertensive but otherwise with stable vitals. Constellation of symptoms is most concerning/consistent with COVID versus influenza versus RSV versus pneumonia. Viral swab was obtained and which was negative. Chest x-ray revealed no acute infiltrate or pneumothorax. After receiving a DuoNeb breathing treatment he did have improvement of his breath sounds as well as near resolution of his wheezing. Patient has congestion drainage cough and shortness of breath for multiple weeks with negative workup in the ER this is most likely upper respiratory infection. As the patient is not in respiratory distress or hypoxic or requiring supplemental oxygen there is no need for further workup or admission and he is otherwise safe for discharge with symptomatic care History & Record Review Discussion w/independent historian: Patient Radiography Diagnostic Testing: Clinical Impression(s) from Imaging Studies Chest X-Ray 11/09/24 23:44 IMPRESSION: No acute cardiopulmonary process is demonstrated. If there are persistent symptoms or clinical concern, short-term follow-up CT evaluation may be considered. Reading Location: [facility] Chest x-ray as interpreted by the emergency medicine physician reveals no acute infiltrate pneumothorax or pleural effusion Discharge Plan Triage Chief Complaint: Shortness of Breath ED Provider: Phoenix Leroy Dx/Rx/DC Orders Clinical Impression: Viral upper respiratory tract infection with cough, Anxiety Instructions: ED URI, Viral W/ Wheezing (Adult) Prescriptions: New benzonatate 200 mg capsule 200 mg PO TID PRN (Reason: cough) Qty: 30 0RF azithromycin [Zithromax Z-[place]] 250 mg tablet See Rx Instructions .ROUTE .COMPLEX Qty: 6 0RF Rx Instructions: For 250 mg dose pack: take 500 mg today (day 1), then 250 mg for 4 days (days 2-5) ipratropium-albuterol 0.5 mg-3 mg(2.5 mg base)/3 mL solution for nebulization 3 ml inhalation 4X/DAY PRN (Reason: Shortness of breath/wheeze) Qty: 180 0RF (DME) nebulizer and compressor Device See Rx Instructions .Route Qty: 1 0RF Rx Instructions: As directed No Action albuterol sulfate [ProAir HFA] 1 PUFF inhaler 1 puff inhalation Q4H PRN PRN (Reason: Shortness Of Breath) hydroxyzine pamoate 25 MG capsule 25 mg PO TID PRN PRN (Reason: Anxiety) buspirone 5 MG tablet 10 mg PO BID metoprolol tartrate 25 MG tablet 25 mg PO BID quetiapine [Seroquel] 25 mg Tablet 25 mg PO BREAKFAST quetiapine [Seroquel] 25 mg Tablet 50 mg PO QHS lorazepam 1 MG tablet 1 mg PO TID PRN (Reason: Anxiety) Qty: 10 0RF amitriptyline 25 mg tablet 50 mg PO QHS Primary Care Provider: NAYA KURTZ Referrals: ANYA KURTZ [employer] [Primary Care Provider] - Print Language: Serbian Disposition Disposition: Home, Self Care Discharge Date/Time: 11/10/24 00:51
[2024-11-10 00:46] VITALS: BP 164/89; PULSE 96; RESP 18; TEMP 36.6; O2SAT 98
== END 2024-11-10 00:51 | disposition home or self-care (01) ==
PROVIDERS: Emergency Provider Emergency Medicine; PCP Nurse Practitioner Family; Visit Provider Emergency Medicine
DX: J06.9 Acute upper respiratory infection, unspecified (principal); F33.1 Major depressive disorder, recurrent, moderate; F41.9 Anxiety disorder, unspecified; E66.9 Obesity, unspecified; J45.909 Unspecified asthma, uncomplicated; F17.210 Nicotine dependence, cigarettes, uncomplicated; Z79.899 Other long term (current) drug therapy
CPT/HCPCS: 71046; 87631; 94640; 99282

== ENCOUNTER → 2024-11-16 | Outpatient (CLI) | payer MEDICAID, SELFPAY ==
--- NOTE | 2024-11-16 12:30 | RAD_ITS ---
EXAM: XR Chest, 2 Views CLINICAL INDICATION: TECHNIQUE: Frontal and lateral views of the chest. COMPARISON: No relevant prior studies available. FINDINGS: LUNGS AND PLEURAL SPACES: Unremarkable. No consolidation. No pneumothorax. HEART: Unremarkable. No cardiomegaly. MEDIASTINUM: Unremarkable. Normal mediastinal contour. BONES/JOINTS: Unremarkable. No acute fracture. RAD/Chest PA and Lateral IMPRESSION: No acute cardiopulmonary process. Reading Location: [facility]
[2024-11-16 12:55] LABS: Erythrocyte Sedimentation Rate 30 mm/hr (0-20)
[2024-11-16 12:57] LABS: Hematocrit 39.8 % (40-54); Hemoglobin 12.7 g/dL (13.0-16.5); Mean Corp Hgb Conc 31.9 g/dL (32-36); Mean Corpuscular Volume 84.5 fL (80-94); Mean Platelet Vol. 9.7 fl (6.2-12.0); Platelet Count 387 K/mm3 (150-450); RBC Distribution Width CV 14.5 % (11.6-14.6); RBC Distribution Width SD 44.8 fl (35.1-43.9); Red Blood Count 4.71 M/mm3 (4.6-6.2); White Blood Count 12.6 K/mm3 (4.4-11.0)
[2024-11-16 13:40] LABS: ALB/GLOB Ratio 0.6 RATIO (0.9-2.4); AST(SGOT) 29 U/L (15-37); Alanine Aminotransfer ALT/SGPT 45 U/L (16-61); Alkaline Phosphatase 92 U/L (45-117); Anion Gap 8 (5-15); BUN 13 mg/dL (7-18); BUN/Creat Ratio 15.9 RATIO (10-20); Calcium,Total 8.9 mg/dL (8.5-10.1); Chloride 103 mmol/L (98-107); Creatinine, Serum 0.82 mg/dL (0.70-1.30); EST Glomerular Filtration Rate 115 mL/min (>60); Est Glom Filt Rate - Afr Amer 139 mL/min (>60); Glucose 91 mg/dL (74-106); Potassium 3.7 mmol/L (3.5-5.1); Sodium Level 136 mmol/L (136-145)
== END | disposition home or self-care (01) ==
LOC: LAB 12:14
PROVIDERS: PCP Nurse Practitioner Family; Referring Provider Nurse Practitioner Family; Visit Provider Nurse Practitioner Family
DX: R05.8 Other specified cough (principal); J45.901 Unspecified asthma with (acute) exacerbation; Z28.39 Other underimmunization status
CPT/HCPCS: 36415; 71046; 80053; 85027; 85652; 86140

== ENCOUNTER 2024-12-07 15:44 | Emergency (ER) | payer MEDICAID, SELFPAY ==
[2024-12-07 15:46] VITALS: BP 147/72; PULSE 115; RESP 22; TEMP 36.4; O2SAT 100
--- NOTE | 2024-12-07 16:10 | EX.ED.DYSGE1 ---
HPI History of Present Illness Chief Complaint: Edema [facility] Medical History Cannabis use disorder, mild, in early remission Adderall use disorder, mild, in sustained remission Major depressive disorder, recurrent, moderate Illness anxiety disorder Panic disorder Home Medications ?Medication ?Instructions ?Recorded ?Last Taken ?Type albuterol sulfate 90 mcg/actuation 1 puff inhalation Q4H PRN PRN 12/08/15 Unknown History aerosol inhaler (ProAir HFA) Shortness Of Breath buspirone 5 mg tablet 10 mg PO BID 01/14/21 Unknown History hydroxyzine pamoate 25 mg capsule 25 mg PO TID PRN PRN Anxiety 01/14/21 Unknown History metoprolol tartrate 25 mg tablet 25 mg PO BID 01/14/21 Unknown History lorazepam 1 mg tablet 1 mg PO TID PRN Anxiety #10 TABLETS 01/18/21 Unknown Rx quetiapine 25 mg tablet (Seroquel) 25 mg PO BREAKFAST 01/28/21 Unknown History quetiapine 25 mg tablet (Seroquel) 50 mg PO QHS 01/28/21 Unknown History amitriptyline 25 mg tablet 50 mg PO QHS 03/25/21 Unknown History azithromycin 250 mg tablet See Rx Instructions PO .COMPLEX #6 11/10/24 Unknown Rx (Zithromax Z-[place]) tabs benzonatate 200 mg capsule 200 mg PO TID PRN cough #30 caps 11/10/24 Unknown Rx ipratropium 0.5 mg-albuterol 3 mg 3 ml inhalation 4X/DAY PRN 11/10/24 Unknown Rx (2.5 mg base)/3 mL nebulization Shortness of breath/wheeze #180 mL soln nebulizer and compressor #1 ea 11/10/24 Unknown Rx cephalexin 500 mg capsule 500 mg PO TID #20 caps 12/07/24 Unknown Rx sulfamethoxazole 800 1 tab PO BID #14 tabs 12/07/24 Unknown Rx mg-trimethoprim 160 mg tablet (Bactrim DS) Allergy/AdvReac Type Severity Reaction Status Date / Time peanut Allergy Anaphylaxis Verified 12/07/24 15:51 egg AdvReac Nausea/Vom/ Verified 12/07/24 15:51 Diarrhea Surgical History History of cholecystectomy Social History (Updated 11/09/24 @ 23:21 by Palak Blount) household members: family housing: apartment Smoking Status: Current every day smoker tobacco type: cigarettes EXAM Physical Exam Const Vital Signs: 12/07/24 15:46 12/07/24 16:34 12/07/24 16:36 Temperature 97.5 F L Temperature Source Oral Pulse Rate 115 H Respiratory Rate 22 H Respiratory Effort Normal Non-Labored Respiratory Pattern Tachypnea Blood Pressure 147/72 H Blood Pressure Mean 97 Pulse Ox 100 Oxygen Delivery Method Room Air Room Air 12/07/24 18:00 12/07/24 20:34 Temperature 98.3 F Temperature Source Pulse Rate 108 H 79 Respiratory Rate 16 16 Respiratory Effort Respiratory Pattern Blood Pressure 150/76 H 117/83 H Blood Pressure Mean 100 94 Pulse Ox 95 95 Oxygen Delivery Method Room Air MDM MDM MDM Narrative Medical decision making narrative: HISTORY OF PRESENT ILLNESS: 34-year-old male presents with concern for leg swelling, redness, pain and itching. Notes is been ongoing for last week. Notes he is using his inhaler more due to shortness of breath especially with exertion. Notes when he lays down he gets more short of breath. Notes he has had approximately 1 and half to 2 months of intermittent upper respiratory tract infections that is exacerbated his asthma. Notes he does vape still. He notes for the past day has had bilateral lower extremity redness and swelling that is worse than baseline. Told by his PCP to come in the ED to get a EKG. the patient denies recent surgery in the last 4 weeks or immobilization in the last 3 days, denies previous diagnosis of DVT or PE, hemoptysis, unilateral leg swelling or malignancy with treatment the last 6 months or palliative. No estrogen use noted. Denies fever, new cough. REVIEW OF SYSTEMS: Pertinent positives: Dyspnea on exertion, leg swelling, leg redness Pertinent negatives: Chest pain, hemoptysis, syncope PHYSICAL EXAM: Nursing triage notes reviewed, Vital signs reviewed Constitutional: please see mdm HENT: MMM Eyes: Pupils equal round and reactive to light, Extraocular muscles intact Neck: No stridor, no JVD, full neck ROM Lungs: Clear to auscultation, No wheezing or rales. No increased work of breathing, no conversational dyspnea, no accessory muscle use, no nasal flaring. No respiratory distress noted Heart: Regular rate and rhythm, No murmurs, No rubs and No gallops, 2+ distal pulses (radial, femoral, posterior tibial) in all extremities Abdomen: Soft, there is no tenderness, rigidity, rebound or guarding, no obvious peritoneal signs, no palpable pulsatile abdominal masses, no auscultated abdominal bruit : No CVAT Extremities: Neuro: No new focal neurological deficits, cranial nerves II through XII intact, 5/5 strength in all present extremities. Intact sensation to light touch in all present extremities, 2+ reflexes bilateral patella tendons. Skin: No rash or lesions noted MEDICAL DECISION MAKING: Chief Complaint: As per HPI External records reviewed: Reviewed prior cardiovascular testing Factors affecting care: Obesity, asthma, anxiety, depression Social determinants of health: History mental health disorder History obtained from others: none Consults: none [facility] Narrative: Patient was initially tachycardic, tachypneic with a heart rate of 115 respirate of 22 otherwise saturating at 100% room air. Exam with bilateral wheezing. No obvious rales. Bilateral lower extremities with tense edema versus chronic venous stasis changes with overlying erythema and warmth most consistent with likely cellulitis. I considered the following differential diagnosis: Cellulitis, CHF, venous stasis changes, lymphedema, obesity, obesity hypoventilation syndrome, arrhythmia, anemia, pneumonia I obtained a broad lab and imaging workup to further elucidate the etiology of the patient's complaints ALL IMAGES (IF OBTAINED) HAVE BEEN PERSONALLY REVIEWED AND INTERPRETED BY MYSELF. Bilateral DVT ultrasounds were negative CBC with leukocytosis suggestive of systemic inflammation, mild anemia (similar to baseline), no thrombocytopenia BMP without evidence of significant electrolyte abnormalities, no anion gap, no acute kidney injury. High-sensitivity troponin is negative, no evidence of myocardial ischemia BNP negative making heart failure less likely Chest x-ray without evidence of CHF or pneumonia COVID/flu/RSV negative Upon reevaluation the patient's heart rate improved to 79, respirate 16, he remained stable in terms of saturations. The patient was ambulated in the emergency department with a ambulatory pulse ox of 98%. No indication for admission at this time. No obvious heart failure. Patient likely suffering from a mild asthma exacerbation in addition to obesity hypoventilation syndrome in the setting of vaping. Given bilateral cellulitis will start oral antibiotics. I do not feel the patient needs to be admitted to the hospital given his young age, no sign of immunocompromise such as diabetes or cancer history. He will trial oral antibiotics at home. Discussed tricked return precautions. All questions answered. The patient and/or family, caregivers express understanding. The patient and/or family, caregivers agrees with the plan. Shared decision making: I will have a discussion with the patient and or visitors regarding risk/benefits of further testing or admission. They will be made aware of of the risk/benefits inherent in this decision they will be given the opportunity to voice understanding. Total critical care time today provided was at least 0 minutes. This excludes separately billable procedures. Critical care time (if documented) is secondary to the patient having high probability of clinically significant/life threatening deterioration in the patient's condition which required my urgent intervention. Impression: 1. Dyspnea on exertion 2. Obesity hypoventilation syndrome 3. Bilateral cellulitis Dispo: Discharge home This note was generated with [employer] dictation software. It may contain incorrect words, spelling, and punctuation that were not noted in review of the chart prior to signing. Lab Data Labs: Laboratory Results - last 24 hr 12/07/24 12/07/24 16:37 18:57 WBC 14.0 H RBC 4.60 Hgb 12.5 L Hct 38.0 L MCV 82.6 MCH 27.2 MCHC 32.9 RDW Std Deviation 44.5 H RDW Coeff of Keke 15.0 H Plt Count 337 MPV 9.2 Immature Gran % (Auto) 0.500 Neut % (Auto) 72.2 H Lymph % (Auto) 19.4 [place] % (Auto) 7.0 Eos % (Auto) 0.3 Baso % (Auto) 0.6 Absolute Neuts (auto) 10.1 H Absolute Lymphs (auto) 2.72 Nucleated RBC % 0 Sodium 136 Potassium 3.6 Chloride 101 Carbon Dioxide 20.8 L Anion Gap 14 BUN 10 Creatinine 0.73 Estim Creat Clear Calc 241.12 Est GFR (MDRD) Non-Af 123 BUN/Creatinine Ratio 13.2 Glucose 96 Calcium 8.8 Troponin T High Sens < 6 Troponin T Hi Sens 2 Hr < 6 NT pro BNP II 81 Radiography Diagnostic Testing: Clinical Impression(s) from Imaging Studies Chest X-Ray 12/07/24 16:57 IMPRESSION: No acute airspace abnormality. Reading Location: [facility] Discharge Plan Triage Chief Complaint: Edema ED Provider: Familia Astorga Dx/Rx/DC Orders Instructions: Cellulitis, Asthma Prescriptions: New cephalexin 500 mg capsule 500 mg PO TID Qty: 20 0RF sulfamethoxazole-trimethoprim [Bactrim DS] 800-160 mg tablet 1 tab PO BID Qty: 14 0RF No Action albuterol sulfate [ProAir HFA] 1 PUFF inhaler 1 puff inhalation Q4H PRN PRN (Reason: Shortness Of Breath) hydroxyzine pamoate 25 MG capsule 25 mg PO TID PRN PRN (Reason: Anxiety) buspirone 5 MG tablet 10 mg PO BID metoprolol tartrate 25 MG tablet 25 mg PO BID quetiapine [Seroquel] 25 mg Tablet 25 mg PO BREAKFAST quetiapine [Seroquel] 25 mg Tablet 50 mg PO QHS lorazepam 1 MG tablet 1 mg PO TID PRN (Reason: Anxiety) Qty: 10 0RF benzonatate 200 mg capsule 200 mg PO TID PRN (Reason: cough) Qty: 30 0RF azithromycin [Zithromax Z-[place]] 250 mg tablet See Rx Instructions .ROUTE .COMPLEX Qty: 6 0RF Rx Instructions: For 250 mg dose pack: take 500 mg today (day 1), then 250 mg for 4 days (days 2-5) ipratropium-albuterol 0.5 mg-3 mg(2.5 mg base)/3 mL solution for nebulization 3 ml inhalation 4X/DAY PRN (Reason: Shortness of breath/wheeze) Qty: 180 0RF (DME) nebulizer and compressor Device See Rx Instructions .Route Qty: 1 0RF Rx Instructions: As directed amitriptyline 25 mg tablet 50 mg PO QHS Primary Care Provider: NAYA KURTZ Referrals: NAYA KURTZ NP-C [Primary Care Provider] - Activity Restrictions/Additional Instructions: Thank you for trusting us with your care today! Your labs images were reassuring. Specifically no sign of blood clot. No sign of heart failure or damage to your heart. I suspect your breathing issues are multifactorial including your history of asthma, your current use of vaping, and obesity hypoventilation syndrome as well as obstructive sleep apnea. You will need outpatient follow-up for further evaluation In terms of your leg swelling and redness I will prescribe 2 antibiotics to treat cellulitis (superficial skin infection of your legs Please return to the emergency department if your symptoms change or worsen. Please follow with your primary care physician for further outpatient evaluation and management. Print Language: Dominican Disposition Disposition: Home, Self Care Discharge Date/Time: 12/07/24 20:35
--- NOTE | 2024-12-07 16:26 | VDLE_ITS ---
Reason For Study Reason For Study: Bilateral leg swelling RIGHT LEFT GSV is normal. GSV is normal. CFV is compressible, spontaneous, phasic, competent CFV is compressible, spontaneous, phasic, competent and demonstrates normal augmentation. and demonstrates normal augmentation. FV is compressible, spontaneous, phasic, competent FV is compressible, spontaneous, phasic, competent and demonstrates normal augmentation. and demonstrates normal augmentation. FV distal not visualized. FV distal not visualized. POP V is compressible, spontaneous, phasic, competent POP V is compressible, spontaneous, phasic, competent and demonstrates normal augmentation. and demonstrates normal augmentation. T/P Trunk is compressible. T/P Trunk is compressible. PTV is compressible. PTV is compressible. RT PerV is compressible. RT PerV is compressible. Calf veins visualized in segments, appear patent. Calf veins visualized in segments, appear patent. Procedure This is a venous duplex using B-mode, color flow and spectral Doppler. Exam performed portable in ED. Technically difficult and limited study due to patient jai habitus and edema. A preliminary report was called and/or faxed to Dr. Astorga. VL/Venous Duplex US - Philip Extrem Interpretation Summary Deep veins of the lower extremities are bilaterally patent and compressible seg mentally. There is no evidence of deep vein thrombosis on either side. Valvular competence appears intact within the p roximal deep venous systems bilaterally. The great saphenous veins appear bilaterally patent and compressible segmentall y. The distal femoral veins were not visualized on either side. Ordering Physician: Familia Astorga Referring Physician: Harish Garcia Performed By: Mary Knott RVT
[2024-12-07 16:37] VITALS: BMI 58.8
[2024-12-07 16:45] LABS: Absolute Lymphocyte Count 2.72 X10^3/uL (0.83-4.51); Absolute Neutrophil Count 10.1 X10^3/uL (2.0-7.7); Basophil# 0.08 X10^3/uL; Basophil% 0.6 % (0-1); Eosinophil# 0.04 X10^3/uL; Eosinophils% 0.3 % (0-5); Hemoglobin 12.5 g/dL (13.0-16.5); Lymphocyte # 2.72 X10^3/ul (0.83-4.51); Lymphocyte % 19.4 % (19-41); Mean Corp Hgb Conc 32.9 g/dL (32-36); Mean Corpuscular Hgb 27.2 pg (27.0-32.0); Mean Corpuscular Volume 82.6 fL (80-94); Mean Platelet Vol. 9.2 fl (6.2-12.0); Monocyte# 0.98 X10^3/uL; NRBC Flagged by Analyzer 0 % (0-5); Neutrophil % 72.2 % (47-70); Platelet Count 337 K/mm3 (150-450); RBC Distribution Width SD 44.5 fl (35.1-43.9)
--- NOTE | 2024-12-07 16:57 | RAD_ITS ---
PROCEDURE: Chest radiograph REASON FOR EXAM: Shortness of breath TECHNIQUE: Frontal view of the chest. COMPARISON: None FINDINGS: Cardiomediastinal silhouette is within normal limits. Lungs are clear. No sizable pneumothorax. RAD/Chest 1 View (Portable) IMPRESSION: No acute airspace abnormality. Reading Location: [facility]
[2024-12-07 17:11] LABS: Anion Gap 14 (5-15); BUN 10 mg/dL (4-19); BUN/Creat Ratio 13.2 RATIO (10-20); Calcium,Total 8.8 mg/dL (7.6-11.0); Carbon Dioxide 20.8 mmol/L (21.0-32.0); Chloride 101 mmol/L (98-108); Creatinine, Serum 0.73 mg/dL (0.70-1.20); EST Glomerular Filtration Rate 123 (>60); Estimated Creatinine Clearance 241.12 ml/min (50-250); Glucose 96 mg/dL (70-99); Potassium 3.6 mmol/L (3.3-5.1); Pro- Brain NATRIURETIC PEPTIDE 81 pg/mL (<=450); Sodium Level 136 mmol/L (133-145); Troponin T High Sensitivity < 6 ng/L (<=22)
[2024-12-07 18:00] VITALS: BP 150/76; PULSE 108; RESP 16; O2SAT 95
[2024-12-07 19:26] LABS: Troponin T High Sens 2 HR < 6 ng/L (<=22)
[2024-12-07 19:41] VITALS: O2SAT 97
[2024-12-07] MEDS: Cephalexin 250 MG Capsule 500 MG PO (20:27)
[2024-12-07] MEDS: Smz/Tmp Ds Tablet 1 TABLET PO (20:27)
[2024-12-07 20:34] VITALS: BP 117/83; PULSE 79; RESP 16; TEMP 36.8; O2SAT 95
== END 2024-12-07 20:35 | disposition home or self-care (01) ==
PROVIDERS: Emergency Provider Emergency Medicine; PCP Nurse Practitioner Family; Visit Provider Emergency Medicine
DX: R06.09 Other forms of dyspnea (principal); E66.2 Morbid (severe) obesity with alveolar hypoventilation; L03.115 Cellulitis of right lower limb; F17.210 Nicotine dependence, cigarettes, uncomplicated; F41.9 Anxiety disorder, unspecified; F32.A Depression, unspecified; L03.116 Cellulitis of left lower limb; J45.909 Unspecified asthma, uncomplicated
CPT/HCPCS: 71045; 80048; 83880; 84484; 85025; 87631; 93005; 93970; 99285; A4216